=== PATIENT | male | born 1955 | race Caucasian/White ===

== ENCOUNTER 2020-04-10 08:58 | Outpatient (REF) | payer BC, SELFPAY ==
--- NOTE | 2020-04-10 09:07 | XR_ITS ---
EXAMINATION: XR SHOULDER, LEFT CLINICAL INFORMATION: Left shoulder pain. COMPARISON: Contralateral right shoulder radiographs 04/10/2020, chest radiograph 10/08/2007. TECHNIQUE: Left shoulder is imaged in 3 views. FINDINGS: There is no fracture or dislocation or destructive process. The acromioclavicular alignment is normal. There is small spur from the inferior medial humeral head. Subtle fine mineralization is seen adjacent to the superior humeral head on the external rotation view which may represent fine calcific tendinosis. There may be calcification near the distal infraspinatus as well. XR/XR shoulder LT min 2V IMPRESSION: Probable fine calcific tendinosis rotator cuff.
--- NOTE | 2020-04-10 09:07 | XR_ITS ---
EXAMINATION: XR SHOULDER, RIGHT CLINICAL INFORMATION: M25.511 - Pain in right shoulder COMPARISON: None TECHNIQUE: The right shoulder is imaged in 3 views. FINDINGS: There is no fracture or dislocation or destructive process. Mild degenerative changes are present at the glenohumeral joint with mild joint narrowing and spurring inferior medial humeral head. The acromioclavicular alignment is normal. There is focal calcification adjacent to the greater tuberosity in region of distal superior rotator cuff consistent with calcific tendinosis. XR/XR shoulder RT min 2V IMPRESSION: 1. Calcific tendinosis distal superior rotator cuff. 2. Mild degenerative changes glenohumeral joint.
== END 2020-04-10 08:59 | disposition home or self-care (01) ==
LOC: HO.HOSX 08:58
PROVIDERS: PCP Internal Medicine; Referring Provider Internal Medicine; Visit Provider Orthopaedic Surgery
DX: M19.011 Primary osteoarthritis, right shoulder (principal); M19.012 Primary osteoarthritis, left shoulder; M75.41 Impingement syndrome of right shoulder; M75.42 Impingement syndrome of left shoulder; Z79.899 Other long term (current) drug therapy
CPT/HCPCS: 20610; 73030; J1040

== ENCOUNTER 2021-10-22 06:49 | Outpatient (REF) | payer BC, SELFPAY ==
[2021-10-22 11:43] LABS: MANUAL DIFF FLAG NO
[2021-10-22 12:00] LABS: Basophils Percent Auto 0.5 % (0-2); Eosinophils Absolute Auto 0.2 X10*3/uL (0.0-0.4); Hematocrit 42.1 % (42.0-52.0); Hemoglobin 13.9 g/dl (14.0-18.0); Imm Gran Abs Auto 0.02 X10*3/uL (0.00-0.03); Imm Gran Pct Auto 0.3 % (0.0-0.4); Lymphocytes Absolute Auto 2.1 X10*3/uL (1.2-4.9); Lymphocytes Percent Auto 27.4 % (20-40); Mean Corpuscular Hemoglobin 31.7 pg (27.0-33.0); Mean Corpuscular Volume 96.1 fL (80.0-98.0); Mean Platelet Volume 9.9 fL (9.4-12.4); Monocytes Absolute Auto 0.6 X10*3/uL (0.1-1.2); Monocytes Percent Auto 7.7 % (2-11); Neutrophils Absolute Auto 4.7 x10*3/uL (2.0-8.3); Neutrophils Percent Auto 62.1 % (45-73); Platelet Count 311 X10*3/uL (160-400); Red Blood Count 4.38 X10*6/uL (4.60-5.80); Red Cell Distribution Width 13.2 % (11.0-16.0); White Blood Count 7.5 X10*3/uL (4.8-10.8)
[2021-10-22 12:14] LABS: Alanine Aminotransferase 24 U/L (0-40); Albumin Level 4.2 g/dL (3.5-5.0); Alkaline Phosphatase 79 U/L (39-117); Anion Gap 15 (12-20); Aspartate Amino Transferase 20 U/L (5-37); Blood Urea Nitrogen 14 mg/dL (9-16); Calcium 9.2 mg/dL (8.4-10.2); Carbon Dioxide 25 mmol/L (22-29); Chloride 107 mmol/L (96-108); Cholesterol 217 mg/dL; Estimated Glomerular Filt Rate > 60; Glucose Fasting 91 mg/dL (60-99); HDL Cholesterol 47 mg/dL; LDL Cholesterol Calculated 122 mg/dl; Potassium 4.5 mmol/L (3.3-5.1); Sodium 142 mmol/L (135-145); Triglycerides 241 mg/dL
[2021-10-22 12:37] LABS: Prostate Specific Antigen 0.45 ng/mL (<0.05-4.0)
== END 2021-10-22 06:50 | disposition home or self-care (01) ==
LOC: HO.HMGCLDS 06:49
PROVIDERS: Visit Provider Internal Medicine
DX: Z00.00 Encounter for general adult medical examination without abnormal findings (principal); Z12.5 Encounter for screening for malignant neoplasm of prostate
CPT/HCPCS: 36415; 80053; 80061; 84153; 85025

== ENCOUNTER 2021-11-29 08:54 | Day surgery (SDC) | payer BC, SELFPAY ==
[2021-11-25 13:56] VITALS: BMI 25.2
--- NOTE | 2021-11-28 13:38 | HO.ANESPROP2 ---
Documented by User: Loraine Goncalves NP 11/28/21 13:39 HPI - Anesthesia Eval Consult details Narrative: 66yo M for Upper Endoscopy and Colonoscopy PMF Active Problems Active Problems: All Active Problems (Updated 04/10/20 @ 14:17 by Johann Villavicencio MD) Bilateral acromioclavicular joint arthritis (Acute) Rotator cuff impingement syndrome of right shoulder (Acute) Rotator cuff impingement syndrome of left shoulder (Acute) Past Medical History Medical History (Updated 04/10/20 @ 14:17 by Johann Villavicencio MD) Barretts esophagus GERD (gastroesophageal reflux disease) Hypertension Surgical History Surgical History (Updated 11/25/21 @ 13:55 by Molly Corral RN) H/O colonoscopy H/O Spinal surgery History of esophagogastroduodenoscopy (EGD) History of tonsillectomy Social History Social History (Updated 04/10/20 @ 09:26 by Anna Recinos CMA) Patient Tobacco Use Status: Never used Tobacco Are you DNR?: No Advance Directives: No Advance Directives Information Provided: Yes Current occupational status: employed Current occupation: [employer] work - Right Handed Meds Allergies Allergy/AdvReac Type Severity Reaction Status Date / Time No Known Allergies Allergy Verified 11/29/21 08:37 Home Medications Medication Instructions Recorded Confirmed Last Taken Type allopurinol 300 mg tablet 150 mg PO DAILY 04/09/20 11/25/21 Unknown History lisinopril 10 mg tablet 10 mg PO DAILY 04/09/20 11/25/21 Unknown History omeprazole 20 mg capsule,delayed 20 mg PO DAILY 04/09/20 11/25/21 Unknown History release Exam Exam Date and Time: November 28, 2021 1338 Height,Weight and Vital Signs: Height 6 ft 1 in Weight 86.636 kg Pertinent Lab Results Pertinent Lab Results: Laboratory Tests 10/22/21 10/22/21 07:06 07:06 WBC 7.5 Hgb 13.9 L Hct 42.1 Plt Count 311 Sodium 142 Potassium 4.5 Chloride 107 Carbon Dioxide 25 BUN 14 Creatinine 0.80 Assessment and Plan Assessment Anesthesia Assessment: Chart Reviewed Documented by User: Carlos Hummel MD 11/29/21 12:03 [facility] Past Medical History Medical History (Updated 04/10/20 @ 14:17 by Johann Villavicencio MD) Barretts esophagus GERD (gastroesophageal reflux disease) Hypertension Family History Family history of problems with anesthesia: No Surgical History Surgical History (Updated 11/25/21 @ 13:55 by Molly Corral RN) H/O colonoscopy H/O Spinal surgery History of esophagogastroduodenoscopy (EGD) History of tonsillectomy History of Problems with Anesthesia: No Social History Social History (Updated 04/10/20 @ 09:26 by Anna Recinos CMA) Patient Tobacco Use Status: Never used Tobacco Are you DNR?: No Advance Directives: No Advance Directives Information Provided: Yes Current occupational status: employed Current occupation: [employer] work - Right Handed Meds Allergies Allergy/AdvReac Type Severity Reaction Status Date / Time No Known Allergies Allergy Verified 11/29/21 08:37 Home Medications Medication Instructions Recorded Confirmed Last Taken Type allopurinol 300 mg tablet 150 mg PO DAILY 04/09/20 11/25/21 Unknown History lisinopril 10 mg tablet 10 mg PO DAILY 04/09/20 11/25/21 Unknown History omeprazole 20 mg capsule,delayed 20 mg PO DAILY 04/09/20 11/25/21 Unknown History release Exam Airway Mallampati Class: III TM Dist: >3cm Neck ROM: Full Partial: Upper Loose/Missing/Broken Teeth: Yes (Poor dentition globally) Heart: S1,S2 Lungs: b/l breath sounds Assessment and Plan Assessment Anesthesia Assessment: Anesthesia Plan Discussed Final Anesthetic Review Family History of Problems with Anesthesia: No History of Problems with Anesthesia: No NPO: Yes ASA Class: II Final Preanesthetic Review: Meds/Allgs Chart Reviewed, Consent Obtained/Reviewed and Anes Risks/Benef Reviewed Patient Risk: Intermediate Procedure Risk: Intermediate Anesthetic Plan Anesthetic Plan: MAC: Disposition: Standard PACU
[2021-11-29 08:58] VITALS: BP 175/103; PULSE 66; RESP 17; TEMP 36.3; O2SAT 98
[2021-11-29] MEDS: Lactated Ringers 1,000 ML 100 ML IVCONT (09:18)
[2021-11-29 09:48] VITALS: BP 148/93
[2021-11-29 11:15] VITALS: BP 113/62; PULSE 67; RESP 16; TEMP 36.4; O2SAT 99
--- NOTE | 2021-11-29 11:17 | P.BOP_ITS ---
Brief Operative Note Date of Service: 11/29/21 Pre-op diagnosis: Loera's, Screening Post-op diagnosis: other (Loera's, Hiatal hernia, Gastric polyps, Diverticulosis) Procedure: EGD with biopsies, Colonoscopy to the cecum and TI Surgeon: Pawel Kowalski Anesthesia: MAC Was an Lending Activities Supervisor used for this Procedure?: No Estimated blood loss (mL): 2.0 Pathology: other (A. Esophagus 35-36cm B. Gastric polyps) Condition: stable Disposition: PACU
[2021-11-29 11:35] VITALS: BP 144/95; PULSE 59; RESP 16; TEMP 36.4; O2SAT 99
--- NOTE | 2021-11-29 22:47 | OP_ITS ---
SURGEON: Pawel Kowalski MD INDICATIONS: The patient presents for evaluation of gastroesophageal reflux and Loera's esophagus, family history of colon cancer and colorectal cancer screening. Full consent has been obtained from him for both procedures, including risks of bleeding and perforation. PREOPERATIVE DIAGNOSIS: POSTOPERATIVE DIAGNOSIS: PROCEDURE PERFORMED: Esophagogastroduodenoscopy with biopsies and colonoscopy to cecum and terminal ileum. ESTIMATED BLOOD LOSS: COMPLICATIONS: ANESTHESIA: Preop medication used, monitored anesthesia care. ASSISTANTS: SPECIMENS: PREOPERATIVE DIAGNOSES: Gastroesophageal reflux, Loera's esophagus, family history of colon cancer, colorectal cancer screening. POSTOPERATIVE DIAGNOSES: Gastroesophageal reflux, Loera's esophagus, family history of colon cancer, colorectal cancer screening, hiatal hernia, gastric polyps, diverticulosis and internal hemorrhoids. DESCRIPTION OF PROCEDURE: The patient was placed in the left lateral decubitus position. The Olympus video gastroscope was passed in the posterior oropharynx and upper esophagus under direct vision. The scope was passed slowly to the distal esophagus. The gastroesophageal junction appeared at 36 cm. Extending from this to 35 cm were segments of probable Loera's mucosa. There was no evidence of any lesions, inflammation, nor mass. The scope entered the stomach. There was a small to moderate-sized hiatal hernia. The scope was advanced to the pylorus and the duodenum was cannulated to the descending portion. The duodenum including the bulb appeared normal without mass or ulceration. The scope was withdrawn back into the stomach. The gastric antrum and body appeared normal with good peristalsis. The scope was retroflexed visualizing the proximal stomach carefully which appeared normal, without any sign of mass or ulceration, other than multiple hyperplastic appearing gastric polyps. The scope was straightened. Biopsies were obtained from some of the polyps. The scope was withdrawn back to the esophagus. Multiple biopsies were obtained between 35 and 36 cm. Proximal to this, the esophageal mucosa appeared normal. The scope was withdrawn from the patient. He was turned around for the colonoscopy. The digital rectal exam revealed no abnormalities. The Olympus video pediatric colonoscope was entered into the rectum and advanced easily to the cecum. Once in the cecum, I did identify normal-appearing cecal pouch with appendiceal orifice and a normal-appearing ileocecal valve. The terminal ileum was cannulated and appeared normal. The scope was withdrawn back in the colon. The entire cecum and ileocecal valve appeared normal. The scope was then slowly withdrawn assessing all mucosal surfaces carefully. Preparation was excellent. I did not visualize any sign of polyps, colitis, or angiodysplasia. There was a moderate amount of sigmoid diverticulosis. In the rectum, scope was retroflexed visualizing small internal hemorrhoids, but no other pathology. The rectal mucosa appeared normal. The scope was straightened and withdrawn from the patient. He tolerated both procedures well and was returned to recovery area in stable condition. IMPRESSION: 1. Hiatal hernia. 2. Loera's esophagus. 3. Gastric polyps. 4. Diverticulosis. 5. Internal hemorrhoids. PLAN: The results of biopsies will be checked. Assuming there is no dysplasia within the Loera's esophagus, I would then recommend both upper endoscopy and colonoscopy again in 5 years for further screening. I do not think the upper endoscopy would need to be done sooner than 5 years due to the small area of Loera's esophagus at this time. He was advised to continue omeprazole at least once a day. He would otherwise see me in the interim on a p.r.n. basis. This has been discussed with his . MD KELVIN Rodriguez/SHEYLA / [id number] MTDD
== END 2021-11-29 12:08 | disposition home or self-care (01) ==
PROVIDERS: PCP Internal Medicine; Visit Provider Internal Medicine
PROC: (CPT 45378; principal; 2021-11-29 10:10)
DX: Z12.11 Encounter for screening for malignant neoplasm of colon (principal); Z80.0 Family history of malignant neoplasm of digestive organs; K57.30 Diverticulosis of large intestine without perforation or abscess without bleeding; K64.8 Other hemorrhoids; K22.70 Barrett's esophagus without dysplasia; K21.9 Gastro-esophageal reflux disease without esophagitis; K31.7 Polyp of stomach and duodenum; K44.9 Diaphragmatic hernia without obstruction or gangrene; I10 Essential (primary) hypertension; M10.9 Gout, unspecified; Z79.899 Other long term (current) drug therapy
CPT/HCPCS: 45378; 43239; 88305; 88342; J3010

== ENCOUNTER 2023-11-02 08:10 | Outpatient (REF) | payer BC, SELFPAY ==
--- NOTE | ~2023-11-02 | XR_ITS ---
EXAMINATION: XR HAND, RIGHT CLINICAL INFORMATION: Right thumb pain COMPARISON: None TECHNIQUE: 3 views of the hand FINDINGS: No fracture or dislocation. 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 There is volar subluxation of the second and third MCP joints. No cortical erosion. Soft tissues are unremarkable. 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 There is volar subluxation of the second and third MCP joints.
== END 2023-11-02 08:11 | disposition home or self-care (01) ==
LOC: HO.HMGCX 08:10
PROVIDERS: PCP Internal Medicine; Visit Provider Internal Medicine
DX: M19.041 Primary osteoarthritis, right hand (principal)
CPT/HCPCS: 73130

== ENCOUNTER 2023-11-10 14:01 | Outpatient (AMB) | payer BC, SELFPAY ==
--- NOTE | 2023-11-10 14:04 | A.OFFVIS_ITS ---
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 Patient reports that he sprained his thumb around May 11, or . He was seen by his PCP who ordered xrays and referred to orthopedics. Currently his pain has increased and has no strength. He has clicking at his IP and a lump located at the base of his thumb. States a tingling sensation at the tip of his thumb. Finds some relief with Advil and icing. 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 He also reports that, at around this time, he began to notice locking and catching in his R thumb, and also noticed a palpable bump in the same area as his pain. He reports today that his symptoms are largely unchanged. He reports that he has tried to do some research on his condition, that he believes he has a trigger thumb, and inquires about treatment options. [facility] Medical History (Updated 11/10/23 @ 19:29 by BENJAMIN Chowdhury) Hypertension GERD (gastroesophageal reflux disease) Barretts esophagus Surgical History H/O colonoscopy History of esophagogastroduodenoscopy (EGD) H/O Spinal surgery History of tonsillectomy Social History (Updated 04/10/20 @ 09:26 by Anna Recinos CMA) Patient Tobacco Use Status: Never used Tobacco Current occupational status: employed Current occupation: [employer] work - Right Handed Review of Systems Const All systems reviewed & are unremarkable except as noted in HPI and below Physical Exam Vital Signs: BMI result Body Mass Index 25.8 Const Other: Patient is alert, oriented, cooperative, and in no acute distress HEENT Head: Yes normocephalic and Yes atraumatic Resp Effort & Inspection: normal respiratory effort and able to speak in complete sentences Cardio Jugular venous distension: no JVD Neuro General: gait normal Cognition (Neuro): normal cognition Extrem Other: Patient is alert, oriented, and in no acute distress. Neuro: Median, ulnar, radial nerves motor and sensory intact and sensation is normal to the tips of all digits. Vascular: Cap refill brisk Pain: Patient reports pain with flexion of the right thumb, as well as tenderness to palpation over the A1 kurtis of the R thumb ROM: Visible and palpable catching of the thumb with flexion and extension at the A1 kurtis Patient is able to make a fist, and good finger cross Skin: No lacerations or abrasions. General: No ecchymosis, erythema, or evidence of infection. Psych: Appears grossly normal Affect normal Attitude cooperative Psych Appearance: grossly normal Mental Status: mental status grossly normal Office Procedures Injection-Therapetic Trigger Single Point: 44912-Rfobnfw point injection, 1 or 2 R trigger thumb injection Results Reviewed Results Reviewed: X-rays obtained in the office today and independently reviewed by me, Rik Beckman PA-C, demonstrate no acute fracture or bony abnormality Assessment & Plan Assessment & Plan (1) Trigger thumb of right hand: Code(s): M65.311 - Trigger thumb, right thumb Category: Medical Plan 1. Right trigger thumb Visible and palpable locking and catching, tenderness over A1 kurtis At this time, it is appropriate to proceed with injection for treatment of this patient's trigger thumb. The risks and benefits of a steroid injection including but not limited to risk of damage to blood vessels, nerves, tendons, infection, skin bleaching, failure to improve symptoms, increased pain, and possible need for further injections or other intervention were discussed with the patient and the patient wishes to proceed with the steroid injection. Once consent was obtained, I sterilely prepped the area over the A1 kurtis of the flexor tendon sheath of the right thumb. I then injected the flexor tendon sheath with a combination of 1 mL of dexamethasone (4mg/ml), and 1% lidocaine. The patient tolerated the procedure well with no complications. If the patient continues to have locking and catching 4-6 weeks following this injection, they may call to schedule appointment to discuss alternative treatment options Follow-up prn Coding Level of Care Code New Pt Level 3 (25686) Diagnoses Trigger thumb of right hand M65.311 CPT Codes Details - Trigger Single Point: [id number] point injection, 1 or 2 ([id number])
[2023-11-10 14:10] VITALS: BMI 25.8
== END 2023-11-10 15:00 | disposition home or self-care (01) ==
PROVIDERS: PCP Internal Medicine
DX: M65.311 Trigger thumb, right thumb (principal)
CPT/HCPCS: 20550; 99203

== ENCOUNTER → 2023-11-10 14:01 | Outpatient (BNVA) | payer BC, SELFPAY | PROVIDERS: PCP Internal Medicine | DX: M65.311 Trigger thumb, right thumb (principal) | CPT/HCPCS: 20550; J1100 ==

== ENCOUNTER 2024-05-02 14:49 | Outpatient (AMB) | payer BC, SELFPAY ==
--- NOTE | 2024-05-02 14:56 | A.OFFVIS_ITS ---
Vital Signs 05/02/24 14:57 Height 6 ft Weight 190 lb BMI 25.8 Handedness Right Intake Visit Reasons: OV-RT hand pain/bump at base of thumb-follow up Intake Note: Amos is a 69 year old right hand dominant male who presents today for a follow up visit of his right trigger thumb. Patient received a right thumb injection on 11/10/23. Patient reports his last injection offered no relief at all to his right thumb. He states his pain has not improved and is progressively getting worse. He would like to discuss surgery. Allergies No Known Allergies Allergy (Verified 05/02/24 14:57) HPI HPI OV-RT hand pain/bump at base of thumb-follow up: Details: Amos is a 69 year old right hand dominant male who presents today for a follow up visit of his right trigger thumb. Patient received a right thumb injection on 11/10/23. Patient reports his last injection offered no relief at all to his right thumb. He states his pain has not improved and is progressively getting worse. He would like to discuss surgery. [facility] Medical History (Updated 11/10/23 @ 19:29 by BENJAMIN Chowdhury) Hypertension GERD (gastroesophageal reflux disease) Barretts esophagus Surgical History H/O colonoscopy History of esophagogastroduodenoscopy (EGD) H/O Spinal surgery History of tonsillectomy Social History Patient Tobacco Use Status: Never used Tobacco Current occupational status: employed Current occupation: [employer] work - Right Handed Review of Systems Const All systems reviewed & are unremarkable except as noted in HPI and below Physical Exam Vital Signs: BMI result Body Mass Index 25.8 Const Other: Patient is alert, oriented, cooperative, and in no acute distress HEENT Head: Yes normocephalic and Yes atraumatic Resp Effort & Inspection: normal respiratory effort and able to speak in complete sentences Cardio Jugular venous distension: no JVD Neuro General: gait normal Cognition (Neuro): normal cognition Extrem Other: Patient is alert, oriented, and in no acute distress. Neuro: Median, ulnar, radial nerves motor and sensory intact and sensation is normal to the tips of all digits. Vascular: Cap refill brisk Pain: Patient reports pain with flexion of the right thumb, as well as tenderness to palpation over the A1 kurtis of the R thumb ROM: Visible and palpable catching of the thumb with flexion and extension at the A1 kurtis Patient is able to make a fist, and good finger cross Skin: No lacerations or abrasions. General: No ecchymosis, erythema, or evidence of infection. Psych: Appears grossly normal Affect normal Attitude cooperative Psych Appearance: grossly normal Mental Status: mental status grossly normal Assessment & Plan Assessment & Plan (1) Trigger thumb of right hand: Code(s): M65.311 - Trigger thumb, right thumb Category: Medical Plan 1. Trigger thumb, right I educated the patient about the condition. I discussed both operative and nonoperative treatment options. The patient would like to proceed with surgery. The risks and benefits of operative treatment were discussed with the patient and the patient wishes to proceed with surgery. These risks include, but are not limited to, risk of damage to blood vessels, nerves, tendons, infection, recurrence, incomplete relief of preoperative symptoms, persistent pain, possible need for further surgery, and the risks associated with regional blocks and/or anesthesia. Plan is to take the patient to the operating room at some point in the next few weeks for the following procedures: 1. Right trigger thumb release under local All of the preoperative paperwork including the consent was discussed today. All of the patient's questions were answered in the clinic today. The patient understands that they will be in contact with our operating room surgical technician to discuss scheduling their procedure. Patient denies diabetes, blood thinners, asthma, heart issues, lung issues, kidney issues, or current smoking. Coding Level of Care Code Est Pt Level 4 (02783) Diagnoses Trigger thumb of right hand M65.311
[2024-05-02 14:57] VITALS: BMI 25.8
== END 2024-05-02 15:29 | disposition home or self-care (01) ==
PROVIDERS: PCP Internal Medicine
DX: M65.311 Trigger thumb, right thumb (principal)
CPT/HCPCS: 99214

== ENCOUNTER 2024-06-29 10:09 | Day surgery (SDC) | payer BC, SELFPAY ==
[2024-06-29 10:24] VITALS: BP 160/86; PULSE 73; RESP 18; TEMP 36.1; O2SAT 97; BMI 26.4
--- NOTE | 2024-06-29 10:37 | MHC.SHP ---
Pre-Procedural Eval Section A - 24 Hr Update-Section A only Date of Service: 06/29/24 The patient is an INPATIENT: No Changes since office visit: No Cold of Flu in the past 2 weeks, No New Medical Problems, No Changes in Medication and No Patient answered all questions The patient has been examined within 24 hours of the surgical procedure. The History & Physical has been completed within 30 days and I have reviewed it.: Yes Section B - Complete if H&P > 30 days Chief Complaint: Trigger thumb, right thumb Allergies: Allergies Allergy/AdvReac Type Severity Reaction Status Date / Time No Known Allergies Allergy Verified 05/02/24 14:57 Plan Diagnosis/Plan: Unchanged I have reviewed the history and physical and performed a pertinent physical examination on my patient. No changes have occurred unless specified. Time Spent With Patient Time: Total time managing care of this patient today ____ minutes.
--- NOTE | 2024-06-29 10:38 | P.OP_ITS ---
Operative Note Operative Note Date of Service: 06/29/24 Narrative: Operative Note Preop diagnosis: 1. Right thumb Trigger finger Postop diagnosis: Same Procedure: 1. Right thumb A1 kurtis release Surgeon: Yolanda Grossman MD Global Upstream Marketing Manager: Rik ALEXANDER Anesthesia: local block using 1% lidocaine with epinephrine Findings: No locking or catching after A1 kurtis release EBL: Less than 5 mL Tourniquet time: None Specimens: None Complications: None Disposition: Brought to recovery room in stable condition Plan: Follow-up for 10-14 days for wound check and suture removal Indications: The patient is 69 years old, with a right thumb trigger finger that has been unresponsive to nonoperative management. The risks and benefits of operative treatment including but not limited to risk of damage to blood vessels, nerves, tendons, infection, persistent pain, persistent symptoms, recurrence or possible need for additional surgery were discussed with the patient and the patient wishes to proceed with surgery. Procedure: Once consent was obtained a local block was performed in the preop area using a combination of 1% lidocaine with epinephrine. The patient was then brought back to the operating suite and placed on the operative table in supine position. The right upper extremity was prepped and draped in a standard surgical fashion. Once assured that we had a good block, a 1.5 cm oblique incision was made centered over the A1 ukrtis of the right thumb . The incision was made through the skin to the subcutaneous tissues using a #15 blade. Careful dissection was made down to the level of the A1 kurtis using tenotomy scissors, with care being taken to protect the nearby neurovascular structures. A longitudinal incision was made in the A1 kurtis 1st using a #15 blade, then using tenotomy scissors under direct visualization. The A1 kurtis was noted to be thickened. Following our A1 kurtis release, we no longer saw any locking or catching of the digit with flexion and extension. Once satisfied with our A1 kurtis release the wound was copiously irrigated with normal saline and hemostasis was obtained with a brief period of local pressure. The skin edges were reapproximated with some 5.0 nylon suture material and a sterile dressing was applied. The patient appears to have tolerated the procedure well and with no complications. All digits were well vascularized at the conclusion of the case.
[2024-06-29 11:18] VITALS: BP 160/95; PULSE 72; RESP 18; O2SAT 98
== END 2024-06-29 11:27 | disposition home or self-care (01) ==
PROVIDERS: PCP Internal Medicine; Visit Provider Orthopaedic Surgery
PROC: (CPT 26055; principal; 2024-06-29 16:10)
DX: M65.311 Trigger thumb, right thumb (principal); I10 Essential (primary) hypertension; K21.9 Gastro-esophageal reflux disease without esophagitis; K22.70 Barrett's esophagus without dysplasia; Z98.890 Other specified postprocedural states; Z79.899 Other long term (current) drug therapy
CPT/HCPCS: 26055; J0171; J2003

== ENCOUNTER → 2024-06-29 10:09 | Outpatient (BNV) | payer BC, SELFPAY | PROVIDERS: PCP Internal Medicine; Visit Provider Orthopaedic Surgery | DX: M65.311 Trigger thumb, right thumb (principal) | CPT/HCPCS: 26055 ==

== ENCOUNTER 2024-07-12 10:32 | Outpatient (AMB) | payer BC, SELFPAY ==
--- NOTE | 2024-07-12 10:33 | A.OFFVIS_ITS ---
Vital Signs 07/12/24 10:34 Height 6 ft Weight 194 lb BMI 26.3 Intake Visit Reasons: PO RT Thumb Trigger Release 06/29/24 Intake Note: Amos is a 69 year old right hand dominant male who presents today for a post operative visit s/p right thumb A1 kurtis release, DOS: 06/29/2024 w/ Dr Grossman. Sutures removed and steris applied. Patient is doing well, reports that he is very pleased with his surgical outcome as his ROM has increased Allergies No Known Allergies Allergy (Verified 07/12/24 10:40) HPI HPI PO RT Thumb Trigger Release 06/29/24: Details: Amos is a 69 year old right hand dominant male who presents today for a post operative visit s/p right thumb A1 kurtis release, DOS: 06/29/2024 w/ Dr Grossman. Sutures removed and steris applied. Patient is doing well, reports that he is very pleased with his surgical outcome as his ROM has increased PFSH Medical History Hypertension GERD (gastroesophageal reflux disease) Barretts esophagus Surgical History H/O colonoscopy History of esophagogastroduodenoscopy (EGD) H/O Spinal surgery History of tonsillectomy Social History Patient Tobacco Use Status: Never used Tobacco Current occupational status: employed Current occupation: [employer] work - Right Handed Review of Systems Const All systems reviewed & are unremarkable except as noted in HPI and below Physical Exam Vital Signs: BMI result Body Mass Index 26.3 Const Other: Patient is alert, oriented, cooperative, and in no acute distress HEENT Head: Yes normocephalic and Yes atraumatic Resp Effort & Inspection: normal respiratory effort and able to speak in complete sentences Cardio Jugular venous distension: no JVD Neuro General: gait normal Cognition (Neuro): normal cognition Extrem Other: Patient is alert, oriented, and in no acute distress. Neuro: Median, ulnar, radial nerves motor and sensory intact and sensation is normal to the tips of all digits. Vascular: Cap refill brisk Pain: Patient reports pain with flexion of the right thumb, as well as tenderness to palpation over the A1 kurtis of the R thumb ROM: Visible and palpable catching of the thumb with flexion and extension at the A1 kurtis Patient is able to make a fist, and good finger cross Skin: No lacerations or abrasions. General: No ecchymosis, erythema, or evidence of infection. Psych: Appears grossly normal Affect normal Attitude cooperative Psych Appearance: grossly normal Mental Status: mental status grossly normal Assessment & Plan Assessment & Plan (1) Trigger thumb of right hand: Code(s): M65.311 - Trigger thumb, right thumb Category: Medical (2) Numbness and tingling in both hands: Code(s): R20.0 - Anesthesia of skin; R20.2 - Paresthesia of skin Category: Medical Plan 1. Trigger thumb, right Status post trigger release, DOS 06/1924 Patient appears to be recovering well postoperatively Patient is educated about the typical recovery course At this time, patient was in more require no further acute follow-up with us, as he is recovering very well Patient was amenable to this plan Patient will follow-up as needed with any acute concerns 2. Numbness and tingling in both hands Symptoms intermittent, daily, worse at night EMG and nerve conduction ordered at visit today patient will follow-up after EMG and nerve conduction study for results review and discussion of further treatment options if indicated, sooner with any acute concerns Orders: Orders NE electromyogram (EMG) Today R20.0 - Anesthesia of skin, R20.2 - Paresthesia of skin NE nerve conduction velocity Today R20.0 - Anesthesia of skin, R20.2 - Paresthesia of skin Coding Level of Care Code Est Pt Level 3 (53126) Diagnoses Trigger thumb of right hand M65.311 Numbness and tingling in both hands R20.0; R20.2
[2024-07-12 10:34] VITALS: BMI 26.3
--- OUTSIDE RECORDS SUMMARY | 2024-07-12 12:49 | XMS_ITS | Patient Health Record ---
Author Organization [facility] Address [address] [place] [address] Care Team Providers Care Business Intelligence Manager Name Role Phone Norris Wadsworth MD Primary Care Provider Pawel Damon Unavailable [phone] ALLERGIES No Known Allergies REASON FOR REFERRAL No Information MEDICATIONS Medication SIG (Take, Route, Fr equency, Duration) Notes Start Date End Date Status Lisinopril 10 MG TAKE 1 TABLET BY PIA EVERY DAY Oral for 90 Active Allopurinol 300 MG Oral for 90 Active Omeprazole 20 MG Oral for 90 A ctive IMMUNIZATIONS Vaccine Route Administration Date Status Comme nts Influenza Unknown 10/22/2021 Refused SOCIAL HISTORY Tobacco Use: Social History Observation Description Date Details (start date - stop date) Never Smoker NA - NA Sex Assigned At : Social History Observation Description Sex Assigned At Unknown Tobacco Use/Smoking Question Answer Notes Patient is a nonsmoker Alcohol Screen Question Answer Notes Did you have a drink contain ing alcohol in the past year? Yes How often did you have a dri nk containing alcohol in the past year? 2 to 3 times a week (3 points) How many drinks did you have on a typical day when you were drinking in the past year? 1 or 2 drinks (0 point) Points 3 Interpretation Negative PROBLEMS Problem Type ICD Code Onset Dates Problem Status W/U Status Risk SNOMED Code Notes Problem Gastro-esophageal reflux disease without esophagitis (K21.9) Active confirmed Gastro-esophage al reflux disease without esophagitis (304720182) Problem Encounter for screening for malignant neoplasm of colon (Z12.11) Active confirmed Screening for malignant neoplasm of colon (394375660) Problem Family history of colon cancer (Z80.0) Active confirmed Family History of Cancer of Colon (Situation) (128365915) Problem Gastric polyps (K31.7) Active confirmed Benign neoplasm of stomach (86219815) Problem GERD (gastroesophageal reflux disease) (K21.9) Active confirmed Gastroesophagea l reflux disease (275915496) Problem 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) Active confirmed Loera esophag us (998072164) Problem Diverticulosis of colon (K57.30) Active confirmed Diverticulosi s of colon (664330391) Problem 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) Active confirmed Loera's esophagus (069650115) PLAN OF TREATMENT Future Test Test Name Order Date UPPER GI ENDOSCOPY 10/22/2021 COLONOSCOPY 10/22/2021 Insurance Providers Payer Name Payer Address Payer Phone Subscriber Number Group Number Insured Name Patient Relationship to Insured Coverage Start Date Coverage End Date [facility] [address] [place] [address] [id number] CARA DIEGO Self - patient is the insured [facility] [address] [place] [address] [phone] [id number] CARA DIEGO Self - patient is the insured MEDICAL (GENERAL) HISTORY Medical History History ICD Code Hypertension Gout GERD/Esophagitis/Loera's/s mall hiatal hernia-last EGD in 08/[address] Estrada--he has been using omeprazole to many years with fairly good relief of reflux symptoms although he does have occasional nocturnal symptoms Negative screening colonoscopies in 2008 and in 08/2016 Denies [place],DM,CVA,Lung disease,renal dise ase Surgical History Surgery Date(Month/Year) Back surgeries 1989,1997
== END 2024-07-12 10:45 | disposition home or self-care (01) ==
PROVIDERS: PCP Internal Medicine
DX: M65.311 Trigger thumb, right thumb (principal); R20.0 Anesthesia of skin; R20.2 Paresthesia of skin
CPT/HCPCS: 99024

== ENCOUNTER 2024-08-09 09:16 | Outpatient (REF) | payer BC, SELFPAY ==
--- NOTE | ~2024-08-09 | XR_ITS ---
EXAMINATION: XR SHOULDER 2 OR MORE VIEWS RIGHT HISTORY: M25.511 - Pain in right shoulder COMPARISON: Comparison is made with the prior examination dated 04/10/2020. FINDINGS: Three views of the right shoulder are submitted. Osseous mineralization is normal. There is no acute fracture or dislocation. There is mild degenerative change of the glenohumeral joint with osteophyte formation. There is mild to moderate osteoarthritis of the AC joint. A well-corticated osseous density adjacent to the inferior glenoid may be the result of old trauma. The soft tissues are unremarkable. XR/XR shoulder RT min 2V IMPRESSION: Degenerative changes of the right shoulder as described. Electronically signed by: Pawel Kendrick MD 08/10/2024 07:01 AM EDT
--- OUTSIDE RECORDS SUMMARY | 2024-08-09 10:18 | XMS_ITS | Patient Health Record ---
Author Organization [facility] Address [address] [place] [address] Care Team Providers Care Ceramic Engineering Professor Name Role Phone Norris Wadsworth MD Primary Care Provider Pawel Damon Unavailable [phone] Allergies No Known Allergies Reason For Referral No Information Medications Medication SIG (Take, Route, Fr equency, Duration) Notes Start Date End Date Status Lisinopril 10 MG TAKE 1 TABLET BY PIA EVERY DAY Oral for 90 Active Allopurinol 300 MG Oral for 90 Active Omeprazole 20 MG Oral for 90 A ctive Immunizations Vaccine Route Administration Date Status Comme nts Influenza Unknown 10/22/2021 Refused Social History Tobacco Use: Social History Observation Description Date Details (start date - stop date) Never Smoker NA - NA Tobacco Use/Smoking Question Answer Notes Patient is [...] drinks (0 point) Points 3 Interpretation Negative Section Notes: Nonsmoker; occ. beer Problems Problem Type SNOMED Code ICD Code Onset Dates Problem Status W/U Status Risk Notes Problem Gastro-esophageal reflux disease without esophagitis (604631534) Gastro-esophageal reflux disease without esophagitis (K21.9) Active confirmed Problem Screening for malignant neoplasm of colon (190197594) Encounter for screening for malignant neoplasm of colon (Z12.11) Active confirmed Problem Family History of Cancer of Colon (Situation) (283240923) Family history of colon cancer (Z80.0) Active confirmed Problem Benign neoplasm of stomach (43725349) Gastric polyps (K31.7) Active confirmed Problem Gastroesophageal reflux disease (839816603) GERD (gastroesophageal reflux disease) (K21.9) Active confirmed Problem Loera esophagus (425243190) 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) Active confirmed Problem Diverticulosis of colon (402581302) Diverticulosis of colon (K57.30) Active confirmed Problem Loera's esophagus (834550347) 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) Active confirmed Plan Of Treatment Future Test Test Name Order Date UPPER GI ENDOSCOPY 10/22/2021 COLONOSCOPY 10/22/2021 Insurance Providers Payer Name Payer Address Payer Phone Subscriber Number Group Number Insured Name Patient Relationship to Insured Coverage Start Date Coverage End Date [facility] [address] [place] [address] [phone] [id number] CARA DIEGO Self - patient is the insured [facility] [address] [place] [address] [phone] [id number] CARA DIEGO Self - patient is the insured Medical (General) History Medical History History ICD Code Hypertension Gout GERD/Esophagitis/Loera's/s mall hiatal hernia-last EGD in 08/[address] Estrada--he has been using omeprazole to many years with fairly good relief of reflux symptoms although he does have occasional nocturnal symptoms Negative screening colonoscopies in 2008 and in 08/2016 Denies [place],DM,CVA,Lung disease,renal dise ase Surgical History Surgery Date(Month/Year) Back surgeries 1989,1997
== END 2024-08-09 09:17 | disposition home or self-care (01) ==
LOC: HO.HOSX 09:16
DX: M25.511 Pain in right shoulder (principal); M19.011 Primary osteoarthritis, right shoulder; M19.012 Primary osteoarthritis, left shoulder
CPT/HCPCS: 20610; 73030; J1010; J2003

== ENCOUNTER 2024-08-09 10:06 | Outpatient (AMB) | payer BC, SELFPAY ==
--- NOTE | 2024-08-09 10:13 | MHC.OFFVIS ---
Intake Visit Reasons: Newprob-RT shoulder-interested in cortisone inj. Intake Note: Amos is a 69 year old right hand dominant male who presents today for a new problem visit with complaints of right shoulder pain. Patient was seen in past on 03/30/[address] Johann Villavicencio for his bilateral shoulders and received an injection in the right shoulder. Patient reports stretching certain ways causes pain. He states he had decent amount of relief since this injection. 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 Allergies No Known Allergies Allergy (Verified 08/09/24 10:21) HPI HPI Newprob-RT shoulder-interested in cortisone inj.: Details: Amos is a 69 year old right hand dominant male who presents today for a new problem visit with complaints of left shoulder pain. Patient was seen in past on 03/30/[address] Johann Villavicencio for his bilateral shoulders and received an injection in the right shoulder. Patient reports stretching certain ways causes pain. He states he had decent amount of relief since this injection. 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 [facility] Medical History Hypertension GERD (gastroesophageal reflux disease) Barretts esophagus Surgical History H/O colonoscopy History of esophagogastroduodenoscopy (EGD) H/O Spinal surgery History of tonsillectomy Social History Patient Tobacco Use Status: Never used Tobacco Current occupational status: employed Current occupation: [employer] work - Right Handed Review of Systems Const All systems reviewed & are unremarkable except as noted in HPI and below Physical Exam Extrem Other: Patient's left shoulder normal to inspection No erythema, ecchymosis, edema noted No lacerations, abrasions, open areas No evidence of infection Patient reports no tenderness to palpation of the left shoulder Patient was able to forward flex to 90 degrees of reports some discomfort when doing so Able to externally rotate to 60 degrees bilaterally Distal sensation intact Capillary refill brisk Office Procedures Joint Inj/Aspir; Non-Pain Clin Joint Injection/Drain Prep: site was prepped using aseptic technique and injection warnings given Approach Used: posterolateral Procedure: The patient tolerated the procedure well and there was some relief with the local anesthesia Shoulders, Hips, Knees, Shoulder Injection Large joint 45929: Left Shoulder Coding Procedure code (CPT) selection complete Assessment & Plan Assessment & Plan (1) Bilateral acromioclavicular joint arthritis: Code(s): M19.011 - Primary osteoarthritis, right shoulder; M19.012 - Primary osteoarthritis, left shoulder Category: Medical (2) Rotator cuff impingement syndrome of left shoulder: Code(s): M75.42 - Impingement syndrome of left shoulder Category: Medical Plan 1. Osteoarthritis of the left shoulder 2. Impingement syndrome left shoulder The risks and benefits of a steroid injection including but not limited to risk of damage to blood vessels, nerves, tendons, infection, skin bleaching, failure to improve symptoms, increased pain, and possible need for further injections or other intervention were discussed with the patient and the patient wishes to proceed with the steroid injection. Once consent was obtained, I aseptically prepped the area over the anterolateral joint line of the left shoulder. I then injected the area over the lateral epicondyle with a combination of 80 mg of dexamethasone and 8 mL of 1% lidocaine. The patient tolerated the procedure well with no complications. If the patient continues to experience symptoms over the following few weeks or months, they can make an appointment to return and discuss alternative treatment measures, such as physical therapy. Follow-up prn Orders: Orders XR shoulder RT min 2V Today M25.511 - Pain in right shoulder Coding Level of Care Code Est Pt Level 3 (41629) Diagnoses Bilateral acromioclavicular joint arthritis M19.011; M19.012 Rotator cuff impingement syndrome of left shoulder M75.42 CPT Codes Shoulders, Hips, Knees, - Shoulder Injection Large joint 89060: Left Shoulder ([id number])
== END 2024-08-09 10:43 | disposition home or self-care (01) ==
LOC: HO.HOS 10:07
PROVIDERS: PCP Internal Medicine
DX: M19.011 Primary osteoarthritis, right shoulder (principal); M19.012 Primary osteoarthritis, left shoulder; M75.42 Impingement syndrome of left shoulder
CPT/HCPCS: 20610; 99213

== ENCOUNTER → 2024-08-09 10:10 | Outpatient (BNV) | payer BC, SELFPAY | PROVIDERS: Visit Provider Radiology Diagnostic Radiology | DX: M19.011 Primary osteoarthritis, right shoulder (principal) | CPT/HCPCS: 73030 ==

== ENCOUNTER 2024-08-10 08:07 | Outpatient (REF) | payer BC, SELFPAY ==
--- NOTE | 2024-08-10 08:15 | EMG_ITS ---
Chief complaint: Nighttime numbness on bilateral forearms and hands Reason for referral: Evaluate for Carpal Tunnel Syndrome Referred by: Rik ALEXANDER Procedure done: Bilateral upper extremities NCS/EMG Precautions and/or limitations: None The limb temperature was monitored continuously and remained between 32-36 degrees C during the performance of the NCS. Ulnar motor NCS was performed with moderate elbow flexion between 70-90 degrees, with across-elbow distance of 10 cm. Nerve Conduction Studies Anti Sensory Summary Table ?Stim Site NR Onset (ms) Norm Onset (ms) Peak (ms) Norm Peak (ms) O-P Amp (?V) Norm O-P Amp Site1 Site2 Delta-0 (ms) Dist (cm) Tito (m/s) Norm Tito (m/s) Left Median Anti Sensory (2nd Digit) Wrist NR <3.6 >10 Wrist 2nd Digit 14.0 Right Median Anti Sensory (2nd Digit) Wrist NR <3.6 >10 Wrist 2nd Digit 14.0 Left Radial Anti Sensory (Thumb) Forearm ? 1.6 2.4 <3.1 21.3 Forearm Thumb 1.6 0.0 Right Radial Anti Sensory (Thumb) Forearm ? 1.7 2.4 <3.1 13.1 Forearm Thumb 1.7 0.0 Left Ulnar Anti Sensory (5th Digit) Wrist ? 5.0 6.5 <3.7 14.8 >15.0 Wrist 5th Digit 5.0 14.0 28 Right Ulnar Anti Sensory (5th Digit) Wrist ? 3.0 4.0 <3.7 13.9 >15.0 Wrist 5th Digit 3.0 14.0 47 Motor Summary Table ?Stim Site NR Onset (ms) Norm Onset (ms) O-P Amp (mV) Norm O-P Amp iAmp (mV) Amp (1st) (%) Site1 Site2 Delta-0 (ms) Dist (cm) Tito (m/s) Norm Tito (m/s) Left Median Motor (Abd Poll Brev) Wrist NR <3.9 >4.5 Elbow Wrist 0.0 >45 Elbow NR Right Median Motor (Abd Poll Brev) Wrist ? 6.7 <3.9 5.2 >4.5 5.9 100.0 Elbow Wrist 5.0 21.0 42 >45 Elbow ? 11.7 4.5 5.2 86.5 Left Ulnar Motor (Abd Dig Minimi) Wrist ? 3.8 <3.0 6.0 >5 7.2 100.0 B Elbow Wrist 3.9 21.0 54 >45 B Elbow ? 7.7 5.8 7.0 96.7 A Elbow B Elbow 2.0 10.0 50 >45 A Elbow ? 9.7 5.8 7.0 96.7 Right Ulnar Motor (Abd Dig Minimi) Wrist ? 3.4 <3.0 5.7 >5 7.4 100.0 B Elbow Wrist 4.6 21.5 47 >45 B Elbow ? 8.0 5.6 7.2 98.2 A Elbow B Elbow 1.8 10.0 56 >45 A Elbow ? 9.8 5.3 7.0 93.0 EMG ?Side Muscle Nerve Root Ins Act Fibs Psw Amp Dur Poly Recrt Int Pat Comment Right 1stDorInt Ulnar C8-T1 Nml Nml Nml Nml Nml 0 Nml Complete Right Biceps Musculocut C5-6 Nml Nml Nml Nml Nml 0 Nml Complete Right Triceps Radial C6-7-8 Nml Nml Nml Nml Nml 0 Nml Complete Right Deltoid Axillary C5-6 Nml Nml Nml Nml Nml 0 Nml Complete Left 1stDorInt Ulnar C8-T1 Nml Nml Nml Nml Nml 0 Nml Complete Left Biceps Musculocut C5-6 Nml Nml Nml Nml Nml 0 Nml Complete Left Triceps Radial C6-7-8 Nml Nml Nml Nml Nml 0 Nml Complete Left Deltoid Axillary C5-6 Nml Nml Nml Nml Nml 0 Nml Complete Left FlexCarpiUln Ulnar C8,T1 Nml Nml Nml Nml Nml 0 Nml Complete Right FlexCarpiUln Ulnar C8,T1 Nml Nml Nml Nml Nml 0 Nml Complete Paraspinal EMG ?Side Muscle Nerve Root Ins Act Fibs Psw Comment Right Cervical Upper Rami Nml Nml Nml Right Cervical Mid Rami Nml Nml Nml Right Cervical Lower Rami Nml Nml Nml Left Cervical Upper Rami Nml Nml Nml Left Cervical Mid Rami Nml Nml Nml Left Cervical Lower Rami Nml Nml Nml FINDINGS: Bilateral ulnar motor nerves showed prolonged distal latency, normal amplitude and normal conduction velocity. Right median motor nerve showed prolonged distal latency, normal amplitude and slow conduction velocity. Left median motor nerve showed absent response. Bilateral median sensory nerves showed absent response. Bilateral ulnar sensory nerves showed prolonged peak latency and small amplitudes. All other nerves tested were within normal. Concentric needle EMG was performed in selected muscles of the bilateral upper extremities and cervical paraspinals. Study did not reveal signs of electric abnormalities as shown in the table above. IMPRESSION: 1. This is an abnormal study. 2. There is electrodiagnostic evidence for left severe and right moderate-severe median neuropathy at the wrist, consistent with carpal tunnel syndrome. 3. There is electrodiagnostic evidence for chronic bilateral ulnar neuropathy. 4. There is no electrodiagnostic evidence for brachial plexopathy or cervical radiculopathy. Thank you for your kind referral. Ara Sloan MD, HONG Board Certified, [place] [employer] and Rehabilitation (ABPMR) Board Certified, [place] Board of Electrodiagnostic Medicine (ABEM) CODIN [phone] 2 MTDD
--- OUTSIDE RECORDS SUMMARY | 2024-08-10 08:15 | XMS_ITS | Patient Health Record ---
Author Organization [facility] Address [address] [place] [address] Care Team Providers Care Veterinary Microbiologist Name Role Phone Norris Wadsworth MD Primary Care Provider Pawel Damon Unavailable [phone] Allergies No Known Allergies Reason For Referral [...] Notes Problem Gastro-esophageal reflux disease without esophagitis (570499478) Gastro-esophageal reflux disease without esophagitis (K21.9) Active confirmed Problem Screening for malignant neoplasm of colon (553008653) Encounter for screening for malignant neoplasm of colon (Z12.11) Active confirmed Problem Family History of Cancer of Colon (Situation) (402602742) Family history of colon cancer (Z80.0) Active confirmed Problem Benign neoplasm of stomach (05632883) Gastric polyps (K31.7) Active confirmed Problem Gastroesophageal reflux disease (370885375) GERD (gastroesophageal reflux disease) (K21.9) Active confirmed Problem Loera esophagus (684331231) 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) Active confirmed Problem Diverticulosis of colon (215438863) Diverticulosis of colon (K57.30) Active confirmed Problem Loera's esophagus (339616657) 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) Active confirmed Plan Of Treatment Future Test Test Name Order Date UPPER GI ENDOSCOPY 10/22/2021 COLONOSCOPY 10/22/2021 Insurance Providers Payer Name Payer Address Payer Phone Subscriber Number Group Number Insured Name Patient Relationship to Insured Coverage Start Date Coverage End Date [facility] [address] [place] [address] [id number] CARA DIEGO Self - patient is the insured [facility] [address] [place] [address] [id number] CARA DIEGO Self - patient is the insured Medical (General) History Medical History History ICD Code Hypertension Gout GERD/Esophagitis/Loera's/s mall hiatal hernia-last EGD in 08/[address] Estrada--he has been using omeprazole to many years with fairly good relief of reflux symptoms although he does have occasional nocturnal symptoms Negative screening colonoscopies in 2008 and in 08/2016 Denies [place],DM,CVA,Lung disease,renal dise ase Surgical History Surgery Date(Month/Year) Back surgeries 1989,1997
== END 2024-08-10 08:08 | disposition home or self-care (01) ==
LOC: HO.NEURO 08:07
DX: G56.11 Other lesions of median nerve, right upper limb (principal); G56.23 Lesion of ulnar nerve, bilateral upper limbs
CPT/HCPCS: 95860; 95886; 95911

== ENCOUNTER → 2024-08-10 08:15 | Outpatient (BNV) | payer BC, SELFPAY | PROVIDERS: Visit Provider Physical Medicine & Rehabilitation | DX: G56.03 Carpal tunnel syndrome, bilateral upper limbs (principal); G56.23 Lesion of ulnar nerve, bilateral upper limbs | CPT/HCPCS: 95886; 95911 ==

== ENCOUNTER 2024-08-17 08:15 | Outpatient (AMB) | payer BC, SELFPAY ==
--- NOTE | 2024-08-17 08:17 | A.OFFVIS_ITS ---
Intake Visit Reasons: OV EMG review B/L hands Intake Note: Amos is a 69 year old right hand dominant male who presents today for an EMG/NCS review of his bilateral upper extremities. EMG/NCS done on 08/10/24 IMPRESSION: 1. This is an abnormal study. 2. There is electrodiagnostic evidence for left severe and right moderate-severe median neuropathy at the wrist, consistent with carpal tunnel syndrome. 3. There is electrodiagnostic evidence for chronic bilateral ulnar neuropathy. 4. There is no electrodiagnostic evidence for brachial plexopathy or cervical radiculopathy. Allergies No Known Allergies Allergy (Verified 08/09/24 10:21) HPI HPI OV EMG review B/L hands: Details: Amos is a 69 year old right hand dominant male who presents today for an EMG/NCS review of his bilateral upper extremities. EMG/NCS done on 08/10/24 IMPRESSION: 1. This is an abnormal study. 2. There is electrodiagnostic evidence for left severe and right moderate-severe median neuropathy at the wrist, consistent with carpal tunnel syndrome. 3. There is electrodiagnostic evidence for chronic bilateral ulnar neuropathy. 4. There is no electrodiagnostic evidence for brachial plexopathy or cervical radiculopathy. [facility] Medical History Hypertension GERD (gastroesophageal reflux disease) Barretts esophagus Surgical History H/O colonoscopy History of esophagogastroduodenoscopy (EGD) H/O Spinal surgery History of tonsillectomy Social History Patient Tobacco Use Status: Never used Tobacco Current occupational status: employed Current occupation: [place] [employer] work - Right Handed Review of Systems Const All systems reviewed & are unremarkable except as noted in HPI and below Physical Exam Extrem Other: Neuro: Normal sensation of the tips of all digits of bilateral hands in the office today No thenar or intrinsic wasting. Good APB muscle firing and good finger cross. Vascular: Capillary refill brisk. ROM: Patient can make a fist and extend all their digits. Skin: No lacerations or abrasions noted. General: No ecchymosis. No erythema or evidence of infection. Assessment & Plan Assessment & Plan (1) Bilateral carpal tunnel syndrome: Code(s): G56.03 - Carpal tunnel syndrome, bilateral upper limbs Category: Medical (2) Cubital tunnel syndrome, bilateral: Code(s): G56.23 - Lesion of ulnar nerve, bilateral upper limbs Category: Medical Plan 1. Bilateral carpal tunnel syndrome 2. Bilateral cubital tunnel syndrome Patient is educated about these conditions Patient is educated about the typical recovery and treatment course At this time, patient states he would like to defer any operative intervention until the winter, as he is quite busy at work and does not have time for recovery At this time Patient is educated on the potential risks of prolonging treatment for carpal and cubital tunnel syndromes Patient expresses understanding of these risks Follow-up as needed with any acute concerns Coding Level of Care Code Est Pt Level 3 (15210) Diagnoses Bilateral carpal tunnel syndrome G56.03 Cubital tunnel syndrome, bilateral G56.23
--- OUTSIDE RECORDS SUMMARY | 2024-08-17 08:22 | XMS_ITS | Patient Health Record ---
Author Organization [facility] Address [address] [place] [address] Care Team Providers Care Engineering Specialist Name Role Phone Norris Wadsworth MD Primary Care Provider Pawel Damon Unavailable [phone] Allergies No Known Allergies Reason For Referral [...] Notes Problem Gastro-esophageal reflux disease without esophagitis (475403753) Gastro-esophageal reflux disease without esophagitis (K21.9) Active confirmed Problem Screening for malignant neoplasm of colon (490898713) Encounter for screening for malignant neoplasm of colon (Z12.11) Active confirmed Problem Family History of Cancer of Colon (Situation) (801613637) Family history of colon cancer (Z80.0) Active confirmed Problem Benign neoplasm of stomach (88287248) Gastric polyps (K31.7) Active confirmed Problem Gastroesophageal reflux disease (019703367) GERD (gastroesophageal reflux disease) (K21.9) Active confirmed Problem Loera esophagus (031791588) 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) Active confirmed Problem Diverticulosis of colon (311267581) Diverticulosis of colon (K57.30) Active confirmed Problem Loera's esophagus (337791151) 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) Active confirmed Plan Of Treatment Future Test Test Name Order Date UPPER GI ENDOSCOPY 10/22/2021 COLONOSCOPY 10/22/2021 Insurance Providers Payer Name Payer Address Payer Phone Subscriber Number Group Number Insured Name Patient Relationship to Insured Coverage Start Date Coverage End Date [facility] [address] [place] [address] [id number] CARA DIEGO Self - patient is the insured [facility] [address] [place] [address] [phone] [id number] CARA DIEGO Self - patient is the insured Medical (General) History Medical History History ICD Code Hypertension Gout GERD/Esophagitis/Loera's/s mall hiatal hernia-last EGD in 08/[address] Estrada--he has been using omeprazole to many years with fairly good relief of reflux symptoms although he does have occasional nocturnal symptoms Negative screening colonoscopies in 2008 and in 08/2016 Denies HI,DM,CVA,Lung disease,renal dise ase Surgical History Surgery Date(Month/Year) Back surgeries 1989,1997
== END 2024-08-17 08:29 | disposition home or self-care (01) ==
LOC: HO.HOS 08:15
DX: G56.03 Carpal tunnel syndrome, bilateral upper limbs (principal); G56.23 Lesion of ulnar nerve, bilateral upper limbs
CPT/HCPCS: 99213

== ENCOUNTER 2024-11-16 07:47 | Outpatient (REF) | payer BC, SELFPAY ==
--- OUTSIDE RECORDS SUMMARY | 2024-11-16 07:50 | XMS_ITS | Patient Health Record ---
Author Organization [facility] Address [address] [place] [address] Care Team Providers Care Legal Billing Specialist Name Role Phone Norris Wadsworth MD Primary Care Provider Pawel Damon Unavailable [phone] Allergies No Known Allergies Reason For Referral [...] Notes Problem Gastro-esophageal reflux disease without esophagitis (026971710) Gastro-esophageal reflux disease without esophagitis (K21.9) Active confirmed Problem Screening for malignant neoplasm of colon (082393805) Encounter for screening for malignant neoplasm of colon (Z12.11) Active confirmed Problem Family History of Cancer of Colon (Situation) (571810510) Family history of colon cancer (Z80.0) Active confirmed Problem Benign neoplasm of stomach (02518013) Gastric polyps (K31.7) Active confirmed Problem Gastroesophageal reflux disease (735946758) GERD (gastroesophageal reflux disease) (K21.9) Active confirmed Problem Loera esophagus (757670685) 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) Active confirmed Problem Diverticulosis of colon (401945211) Diverticulosis of colon (K57.30) Active confirmed Problem Loera's esophagus (484242770) 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
[2024-11-16 10:26] LABS: MANUAL DIFF FLAG NO
[2024-11-16 10:37] LABS: Hematocrit 38.4 % (42.0-52.0); Hemoglobin 12.8 g/dl (14.0-18.0); Imm Gran Abs Auto 0.04 X10*3/uL (0.00-0.03); Imm Gran Pct Auto 0.4 % (0.0-0.4); Lymphocytes Absolute Auto 1.8 X10*3/uL (1.2-4.9); Mean Corpuscular HGB Conc 33.3 g/dl (31.0-36.0); Mean Corpuscular Hemoglobin 31.8 pg (27.0-33.0); Mean Corpuscular Volume 95.3 fL (80.0-98.0); NRBC Abs Auto 0.000 X10*3/uL (0.0-0.012); NRBC Pct Auto 0.0 /100WBC (0.0-0.2); Platelet Count 419 X10*3/uL (160-400); Red Blood Count 4.03 X10*6/uL (4.60-5.80); White Blood Count 10.4 X10*3/uL (4.8-10.8)
[2024-11-16 11:07] LABS: Alanine Aminotransferase 21 U/L (0-40); Albumin Level 4.1 g/dL (3.5-5.0); Alkaline Phosphatase 98 U/L (39-117); Anion Gap 13 (12-20); Aspartate Amino Transferase 23 U/L (5-37); Blood Urea Nitrogen 10 mg/dL (9-16); Calcium 8.7 mg/dL (8.4-10.2); Carbon Dioxide 27 mmol/L (22-29); Chloride 105 mmol/L (96-108); Cholesterol 178 mg/dL (<200); Estimated Glomerular Filt Rate > 60; HDL Cholesterol 46 mg/dL (>40); Potassium 4.5 mmol/L (3.3-5.1); Sodium 140 mmol/L (135-145); Total Protein 7.1 g/dL (6.5-8.0); Triglycerides 89 mg/dL (<150)
[2024-11-16 11:15] LABS: Prostate Specific Antigen 0.59 ng/mL (<0.05-4.0)
[2024-11-17 09:34] LABS: Lyme Abs Screen <0.90 index
== END 2024-11-16 07:48 | disposition home or self-care (01) ==
LOC: HO.HMGCLDS 07:47
PROVIDERS: Visit Provider Internal Medicine
DX: Z00.00 Encounter for general adult medical examination without abnormal findings (principal); I10 Essential (primary) hypertension; Z12.5 Encounter for screening for malignant neoplasm of prostate
CPT/HCPCS: 36415; 80053; 80061; 84153; 85025; 86617; 86618

== ENCOUNTER 2024-12-10 08:53 | Outpatient (AMB) | payer BC, SELFPAY ==
[2024-12-10 09:12] VITALS: BP 136/72; PULSE 76; RESP 15; TEMP 36.8; O2SAT 96; BMI 24.8
--- NOTE | 2024-12-10 09:12 | AM.OFFWIN_ITS ---
Intake Vital Signs 12/10/24 09:12 Height 6 ft Weight 183 lb BMI 24.8 BP 136/72 Blood Pressure Location Lt brachial Position Sitting Respiration 15 Pulse 76 Pulse Source Pulse Oximeter Temp 98.2 F Temp Source Oral Pulse Oximetry (%) 96 Oxygen Delivery Method Room Air Intake Visit Reasons: EP lyme symptoms, fatigue, muscle pain Intake Note: Pt is here today c/o muscle aches and joint pain x1mo. in the month or so has had tick bites Patient Tobacco Use Status: Never used Tobacco Allergies No Known Allergies Allergy (Verified 12/10/24 09:12) HPI HPI Comments History of Present Illness Details This is a 69-year-old male who presented to the walk-in clinic with hansa briseno for Lyme disease. Patient states he had a known tick bite to his left mid back approximately 2 months ago. He is unsure how long the tick was embedded. He then developed a red raised circular rash with central clearing to his left mid back several days after the tick bite, which slowly grew and lasted about 1.5 weeks. Patient then started to develop non-specific constitutional symptoms such as fatigue, malaise, arthralgias/myalgias, headaches, neck stiffness, decreased appetite, and chills/sweats. He states these symptoms have been progressively worsening over the past 1 month now. He denies any known/measured fevers. He reports some shortness of breath with heavy exertion but denies dyspnea at rest or chest pain or palpitations. [facility] Medical History Hypertension GERD (gastroesophageal reflux disease) Barretts esophagus Surgical History H/O colonoscopy History of esophagogastroduodenoscopy (EGD) H/O Spinal surgery History of tonsillectomy Social History Patient Tobacco Use Status: Never used Tobacco Current occupational status: employed Current occupation: [employer] work - Right Handed Review of Systems Const All systems reviewed & are unremarkable except as noted in HPI and below Reports no additional complaints Eyes Reports no additional complaints ENT Reports no additional complaints Card Reports no additional complaints Resp Reports no additional complaints GI Reports no additional complaints Reports no additional complaints Musc Reports no additional complaints Skin/Breast Reports system reviewed and no additional complaints, except as documented Neuro Reports no additional complaints Psych Reports no additional complaints Endo Reports no additional complaints [place]/Lymph Reports no additional complaints Aller/Immun Reports no additional complaints Physical Exam Vital Signs: Last Vital Signs Temp 98.2 F 12/10/24 09:12 Pulse 76 12/10/24 09:12 Resp 15 12/10/24 09:12 BP 136/72 12/10/24 09:12 Pulse Ox 96 12/10/24 09:12 Oxygen Delivery Method Room Air 12/10/24 09:12 BMI result Body Mass Index 24.8 Const Other: Vital signs reviewed. Constitutional: Non-toxic appearing. No acute distress. Well-developed and well-nourished. HEENT: Normocephalic and atraumatic. PERRL/EOMI. Skin: Warm and dry. Small area of hyperpigmentation to the left upper back at site of tick bite. No bullseye rash appreciated. Neck: Full and painless range of motion. No cervical lymphadenopathy. Cardio: Regular rate and rhythm. No murmurs, gallops, or rubs. No lower extremity edema. No JVD. Pulmonary: No respiratory distress. No accessory muscle usage. Clear to auscultation bilaterally without wheezing, crackles, or rhonchi. Gastrointestinal: Soft, nontender, and nondistended in all 4 quadrants. Normoactive bowel sounds in all 4 quadrants. Musculoskeletal: Normal range of motion in joints throughout the body. No deformity or other signs of injury. Neuro: Alert and oriented x4. Cranial nerves 2-12 grossly intact. No focal deficits appreciated. Psych: Normal mood and affect. Assessment & Plan Assessment & Plan (1) Suspected Lyme disease: Code(s): R68.89 - Other general symptoms and signs Plan 69-year-old male who presented to the walk-in clinic with concern for Lyme disease. He had a known tick bite about 1.5-2 months ago and has been experiencing non-specific constitutional symptoms as well as description of classic bullseye rash (which is not evident on today's exam) since about 2 weeks following the tick bite. He had a Lyme test on 11/16/24, which was negative, but that would've been early on his illness so the reliability of that test is unclear. Given his description of classic erythema migrans as well as constitutional symptoms and known tick bite, there is high suspicion for early localized Lyme disease. For this reason, I will treat empirically with PO doxycycline 100 mg twice daily x 10 days. Patient has an appointment scheduled with his PCP on 12/27/24 and he was instructed to attend this appointment as scheduled or return to the walk-in clinic sooner if his symptoms do not improved. Patient was educated on the risk of photosensitivity risk with doxycycline and was offered alternative antibiotic regimen as he spends a lot of time outside but patient would like to proceed with doxycycline as this is the preferred treatment. He was educated to wear SPF, long-sleeves/pants while outside in the sun. Patient educated on the signs and symptoms of neurologic and cardiac involvement and was instructed to proceed to the emergency room if he develops any of the symptoms. Patient and his verbalized understanding and they are in agreement with the plan. Medications: New doxycycline hyclate 100 mg PO BID 20 caps 0RF Coding Level of Care Code Est Pt Level 4 (70142) Diagnoses Suspected Lyme disease R68.89
== END 2024-12-10 11:36 | disposition home or self-care (01) ==
PROVIDERS: PCP Physician Assistant; Visit Provider Physician Assistant Medical
DX: R68.89 Other general symptoms and signs (principal)

== ENCOUNTER 2024-12-21 15:14 | Outpatient (AMB) | payer BC, SELFPAY ==
--- NOTE | 2024-12-21 15:15 | MHC.OFFVIS ---
Vital Signs 12/21/24 15:18 Height 6 ft Weight 183 lb BMI 24.8 Pulse 83 Pulse Source Pulse Oximeter Pulse Oximetry (%) 98 Oxygen Delivery Method Room Air Intake Visit Reasons: ? of Lyme ok per Dr. Frias Allergies No Known Allergies Allergy (Verified 12/21/24 15:18) HPI HPI ? of Lyme ok per Dr. Frias: Details: He reports feeling achy last month. He reports tick bite October and since then has felt week. He has had 14 days po Doxycycline and then given script for more. He has no respiratory,cardiac or GI symptoms. [facility]LY [facility] Medical History Hypertension GERD (gastroesophageal reflux disease) Barretts esophagus Surgical History H/O colonoscopy History of esophagogastroduodenoscopy (EGD) H/O Spinal surgery History of tonsillectomy Social History Patient Tobacco Use Status: Never used Tobacco Current occupational status: employed Current occupation: [place] work - Right Handed Review of Systems Const All systems reviewed & are unremarkable except as noted in HPI and below Physical Exam Vital Signs: Last Vital Signs Pulse 83 12/21/24 15:18 Pulse Ox 98 12/21/24 15:18 Oxygen Delivery Method Room Air 12/21/24 15:18 BMI result Body Mass Index 24.8 Const General: cooperative Orientation/consciousness: patient oriented x3 HEENT Head: Yes normal to inspection Mouth: Normal oral and palatal mucosa present Eyes General: appearance normal, both eyes and all related structures Pupils: Equal, round and reactive pupils present Resp Effort & Inspection: normal respiratory effort Cardio Rate: regular rate Rhythm: regular rhythm GI Palpation (GI): Soft to palpation and nontender General: Yes no CVA tenderness Back/Spine/Pelvis Back: no CVA tenderness Skin General skin exam: no rashes or lesions noted Neuro General: patient oriented x3 Cranial nerves: Yes CN's II-XII intact bilaterally and Yes Equal, round and reactive pupils present Extrem General: Yes normal to inspection Psych Appearance: grossly normal Assessment & Plan Assessment & Plan (1) Lyme disease: Comment: Possible Lyme, [place],collagen vascular disease since hand joints involved worse He may have post Lyme achiness. Would give another 10 days Doxycycline to be at one month in case Lyme arthritis but doesnt look like large joints are affected. Follow PCP. Check EKG make sure no cardiac complaints,there are no signs of unresolved disease. Code(s): A69.20 - Lyme disease, unspecified Category: Medical Plan: na Orders: Orders ECG 12 lead EKG 12/21/24 A69.20 - Lyme disease, unspecified Medications: New doxycycline hyclate 100 mg PO BID 10 days 20 caps 0RF doxycycline hyclate 100 mg PO BID 20 caps 0RF 10 days Coding Level of Care Code New Pt Level 3 (26941) Diagnoses Lyme disease A69.20
--- OUTSIDE RECORDS SUMMARY | 2024-12-21 15:17 | XMS_ITS | Patient Health Record ---
Author Organization [facility] Address [address] [place] [address] Care Team Providers Care Fuel Cell Binder Name Role Phone Ermelinda (RETIRED) Norris VELIZ Primary Care Provide r Unavailable Pawel Kowalski Unavailable [phone] Allergies No Known Allergies Reason For Referral No Information Medications Medication SIG (Take, Route, Fr equency, Duration) Notes Start Date End Date Status Lisinopril 10 MG TAKE 1 TABLET BY EVERY DAY Oral for 90 Active Allopurinol [...] Notes Problem Gastro-esophageal reflux disease without esophagitis (657363858) Gastro-esophageal reflux disease without esophagitis (K21.9) Active confirmed Problem Screening for malignant neoplasm of colon (338920130) Encounter for screening for malignant neoplasm of colon (Z12.11) Active confirmed Problem Family History of Cancer of Colon (Situation) (206531535) Family history of colon cancer (Z80.0) Active confirmed Problem Gastric polyps (K31.7) Active confirmed Problem GERD (gastroesophageal reflux disease) (K21.9) Active confirmed Problem Loera esophagus (485115883) 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) Active confirmed Problem Diverticulosis of colon (786217680) Diverticulosis of colon (K57.30) Active confirmed Problem 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) Active confirmed Plan Of Treatment Future Test Test Name Order Date UPPER GI ENDOSCOPY 10/22/2021 COLONOSCOPY 10/22/2021 Insurance Providers Payer Name Payer Address Payer Phone Subscriber Number Group Number Insured Name Patient Relationship to Insured Coverage Start Date Coverage End Date [facility] [address] [place] [address] [id number] CARA DIEGO Self - patient is the insured [facility] [address] [place] [address] [phone] [id number] CARA DIEGO Self - patient is the insured Medical (General) History Medical History History ICD Code Hypertension Gout GERD/Esophagitis/Loera's/s mall hiatal hernia-last EGD in 08/[address] Estrada--he has been using omeprazole to many years with fairly good relief of reflux symptoms although he does have occasional nocturnal symptoms Negative screening colonoscopies in 2008 and in 08/2016 Denies MO,DM,CVA,Lung disease,renal dise ase Surgical History Surgery Date(Month/Year) Back surgeries 1989,1997
[2024-12-21 15:18] VITALS: PULSE 83; O2SAT 98; BMI 24.8
== END 2024-12-21 15:48 | disposition home or self-care (01) ==
LOC: HO.HID 15:14
PROVIDERS: PCP Physician Assistant; Visit Provider Internal Medicine
DX: A69.20 Lyme disease, unspecified (principal)
CPT/HCPCS: 99203

== ENCOUNTER 2024-12-28 09:04 | Outpatient (AMB) | payer BC, SELFPAY ==
--- NOTE | 2024-12-28 09:05 | A.OFFPC_ITS ---
Vital Signs 12/28/24 09:10 12/28/24 09:13 Weight 81.193 kg BP 168/78 H Blood Pressure Location Lt brachial Position Sitting Respiration 16 Pulse 86 Pulse Source Pulse Oximeter Temp 97.5 F Temp Source Temporal Artery Scan Pulse Oximetry (%) 99 Oxygen Delivery Method Room Air Intake Visit Reasons: routine - Croke pt. review CHOL results Drop Wire Aligner Required: No Accompanied by: Spouse Allergies No Known Allergies Allergy (Verified 12/28/24 09:06) Tobacco use date assessed: 12/28/24 HPI HPI Comments History of Present Illness Details 69-year-old male with history of hyperch olesterolemia, gout, hypertension, GERD, vertigo presents to the office today accompanied by his for management of chronic conditions and to establish care. Last seen by prior PCP 06/2024 Hypertension-compliant with lisinopril 10 mg daily improved on recheck but initially 160/78 GERD-controlled with omeprazole Gout-no recent flares. On allopurinol and colchicine Concerns: Polyarthralgia-reports presented to an urgent care on due to severe polyarthralgia. He had recalled a tick bite about 1 month prior to the visit but initially had not thought much of it as [place] However given the polyarthralgia he was concerned and presented to the ED. he was started on doxycycline initially for 2 weeks but extended to 3 weeks though no tick panel was taken. He states that all of his joints except for his feet are in severe pain. He has difficulty standing and getting up as he is very stiff. He has also been incredibly fatigued, sleeping 4 hours all of which are very atypical for him. 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 With movement, reports the pain as a 10/10, sitting more tolerable and Advil helps somewhat. He is also reporting subjective fevers initially as well as mild headaches but denies any vision changes He is also reporting a dry cough that started recently that he describes as annoying. No associated symptoms. Does take lisinopril Health maintenance: Last colonoscopy 11/2021 with 5 year follow-up advised due to tubular adenoma. Dr. Kowalski ROS: General: No fevers, malaise, unintentional weight loss HEENT: No blurred vision, diplopia. No sore throat, nasal congestion, rhinorrhea, sinus pain, ear pain Cardiovascular: No chest pain, palpitations, or leg edema Respiratory: No shortness of breath, wheezing, cough GI: No abdominal pain, nausea, vomiting, diarrhea, constipation, melena, hematochezia : No dysuria, hematuria, increased urinary frequency, decreased urinary output MSK: see hpi Neuro: No headaches, weakness, paresthesias Skin: No rashes or lesions EXAM: Constitutional - Awake and Alert, No apparent distress Eyes - PERRL Cardiovascular - S1S2, RRR, No edema Respiratory - Normal lung expansion, Normal respiratory effort, No respiratory d istress, CTA bilaterally Extremities - no calf tenderness bilaterally, no swelling MSK - no joint erythema/ Swelling noted of the bl hands with limited ROM thoughout, slow to change position, antalgic gait Skin - Warm/Dry Neurological - Alert & oriented x3. CN II-XII iin tact Psychological - Appropriate affect PFSH Medical History (Updated 12/30/24 @ 20:33 by BENJAMIN Mera) Gout Polyarthralgia Hypertension GERD (gastroesophageal reflux disease) Barretts esophagus Surgical History (Updated 12/26/24 @ 16:25 by Subha Casiano) H/O colonoscopy (~11/29/21) History of esophagogastroduodenoscopy (EGD) H/O Spinal surgery History of tonsillectomy Social History Patient Tobacco Use Status: Never used Tobacco e-Cigarette/Vaping Use: Never Used Current occupational status: employed Current occupation: [employer] work - Right Handed Questionnaire PHQ-9 Over the last 2 weeks, how often have you been bothered by any of the following problems? 1. Little interest or pleasure in doing things: not at all 2. Feeling down, depressed, or hopeless: not at all 3. Trouble falling or staying asleep, or sleeping too much: nearly every day 4. Feeling tired or having little energy: nearly every day 5. Poor appetite or overeating: nearly every day 6. Feeling bad about yourself - or that you are a failure or have let yourself or your family down: not at all 7. Trouble concentrating on things, such as reading the newspaper or watching television: not at all 8. Moving or speaking so slowly that other people could have noticed. Or the opposite - being so fidgety or restless that you have been moving around a lot more than usual: nearly every day 9. Thoughts that you would be better off or of hurting yourself in some way: not at all Total score: 12 Source: Developed by Drs. Pawel Renner, Elise Damico, Travon Wood and colleagues, with an educational walker from [employer]. Thrive Questionnaire Date Thrive assessed: 12/28/24 I am a: Patient What is your living situation today?: I have a steady place to live Within the past 12 months, did the food you bought not last and you didn't have the money to get more?: Never true Within the past 12 months, did you worry whether your food would run out before you got money to buy more?: Never true Do you have trouble paying for medicines?: No Do you have trouble getting transportation to medical appointments?: No Do you have trouble paying your heating and electricity bill?: No Do you have trouble taking care of your child, family member or friend?: No Do you have trouble with day-to-day activities such as bathing, preparing meals, shopping, managing finances, etc.?: No Are you currently unemployed and looking for a job?: No Are you interested in more education?: No THRIVE Score: 0 AUDIT C Alcohol Use Questionnaire (AUDIT-C) 1. How often do you have a drink containing alcohol?: 2-4 times a month 2. How many drinks containing alcohol do you have on a typical day when you are drinking?: 1 or 2 Total Score: 2 ELTON-7 AMB Questionnaire ELTON-7 Date ELTON - 7 assessed: 12/28/24 Feeling nervous, anxious, or on edge: 3 = Nearly every day Not being able to stop or control worryin = Not at all Worrying too much about different things: 3 = Nearly every day Trouble relaxin = Nearly every day Being so restless that it is hard to sit still: 0 = Not at all Becoming easily annoyed or irritable: 0 = Not at all Feeling afraid as if something awful might happen: 0 = Not at all Total ELTON-7 score (0-4 normal; 5-9 mild; 10-14 moderate; 15-21 severe): 9 Source: Developed by Drs. Pawel Renner, Elise Damico, Travon Wood and colleagues, with an educational walker from [employer]. Physical exam (Primary Care) Vital Signs: Last Vital Signs Temp 97.5 F 12/28/24 09:13 Pulse 86 12/28/24 09:13 Resp 16 12/28/24 09:13 BP 168/78 H 12/28/24 09:13 Pulse Ox 99 12/28/24 09:13 Oxygen Delivery Method Room Air 12/28/24 09:13 Tobacco/Smoking Status: Tobacco use Status Tobacco use date assessed 12/28/24 12/28/24 09:09 Patient Tobacco Use Status Never used Tobacco 12/28/24 09:09 e-Cigarette/Vaping Use Never Used 12/28/24 09:09 PHQ-9: PHQ-9 Score PHQ-9: Total score 12 12/28/24 09:19 Thrive Assessment: Date of Thrive Assessment Date Thrive assessed 12/28/24 12/28/24 09:16 Coding Level of Care Code New Pt Level 4 (77443) Complex EM visit Add On G2211 Diagnoses Hypertension I10 Polyarthralgia M25.50 Barretts esophagus K22.70 Gout M10.9 Assessment & Plan Assessment & Plan (1) Hypertension: Code(s): I10 - Essential (primary) hypertension Category: Medical Plan: Blood pressure elevated but in significant discomfort, was normal at prior visit 3 days ago. Continue lisinopril for now, dry cough possibly related. He Would like to further investigate polyarthralgia before making changes. (2) Polyarthralgia: Code(s): M25.50 - Pain in unspecified joint Category: Medical Plan: Molecular tick panel ordered though this seems to be less likely tick-borne in nature especially given lack of improvement with the doxycycline he has been taking. Reviewed Infectious Disease note who does say it is possible Lyme, Prolastin, collagen vascular disease given the hand involvement but did recommend continuing doxycycline. Agree with continuation of doxycycline to complete course. Will also check CBC and LDH. Should also consider autoimmune etiology-check ESR, CRP, YUDI ESR, rheumatoid factor. Much less likely to be gout flare but check uric acid Prednisone taper ordered to be taken only after labs have been collected (3) Barretts esophagus: Code(s): K22.70 - Loera's esophagus without dysplasia Category: Medical Plan: Stable. Continue omeprazole (4) Gout: Code(s): M10.9 - Gout, unspecified Category: Medical Plan: Stable. Checking uric acid. Continue allopurinol, colchicine Orders: Orders Lipid Panel 12/28/24 A6. - Lyme disease, unspecified, I10 - Essential (primary) hypertension, M25.50 - Pain in unspecified joint Rheumatoid Factor 12/28/24. - Lyme disease, unspecified, I10 - Essential (primary) hypertension, M25.50 - Pain in unspecified joint YUDI Reflex Titer and Pattern 12/28/24 A6. - Lyme disease, unspecified, I10 - Essential (primary) hypertension, M25.50 - Pain in unspecified joint CRP High Sensitivity 12/28/24 A6. - Lyme disease, unspecified, I10 - Essential (primary) hypertension, M25.50 - Pain in unspecified joint Uric Acid 12/28/24 A6. - Lyme disease, unspecified, I10 - Essential (primary) hypertension, M25.50 - Pain in unspecified joint Tick-borne Disease Molecular 12/28/24 A6.20 - Lyme disease, unspecified, I10 - Essential (primary) hypertension, M25.50 - Pain in unspecified joint Complete Blood Count Auto Diff 12/28/24 A6. - Lyme disease, unspecified, I10 - Essential (primary) hypertension, M25.50 - Pain in unspecified joint Basic Metabolic Panel 12/28/24 A6. - Lyme disease, unspecified, I10 - Essential (primary) hypertension, M25.50 - Pain in unspecified joint Liver Panel 12/28/24 A6. - Lyme disease, unspecified, I10 - Essential (primary) hypertension, M25.50 - Pain in unspecified joint Erythrocyte Sedimentation Rate 12/28/24 A6. - Lyme disease, unspecified, I10 - Essential (primary) hypertension, M25.50 - Pain in unspecified joint Lactate Dehydrogenase 12/28/24 W57.XXXA - Bitten or stung by nonvenomous insect and other nonvenomous arthropods, initial encounter Medications: New prednisone see taper instructions; 40 mg Daily x3 days, 30 mg daily x3 days, 20 mg daily x3 days, 10 mg daily x3 days 10 mg PO DIRECTED 30 tabs 0RF
[2024-12-28 09:13] VITALS: BP 168/78; PULSE 86; RESP 16; TEMP 36.4; O2SAT 99
--- OUTSIDE RECORDS SUMMARY | 2024-12-28 09:46 | XMS_ITS | Patient Health Record ---
Author Organization [facility] Address [address] [place] [address] Care Team Providers Care Penology Teacher Name Role Phone Ermelinda (RETIRED) Norris VELIZ Primary Care Provide r Unavailable Pawel Kowalski Unavailable [phone] Allergies No Known Allergies Reason For Referral [...] Notes Problem Gastro-esophageal reflux disease without esophagitis (615703871) Gastro-esophageal reflux disease without esophagitis (K21.9) Active confirmed Problem Screening for malignant neoplasm of colon (309612078) Encounter for screening for malignant neoplasm of colon (Z12.11) Active confirmed Problem Family History of Cancer of Colon (Situation) (336351067) Family history of colon cancer (Z80.0) Active confirmed Problem Gastric polyps (K31.7) Active confirmed Problem Gastroesophageal reflux disease (960328808) GERD (gastroesophageal reflux disease) (K21.9) Active confirmed Problem Loera esophagu s (K22.70) Active confirmed Problem Diverticulosis of colon (328982893) Diverticulosis of colon (K57.30) Active confirmed Problem 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) Active confirmed Plan Of Treatment Future Test Test Name Order Date UPPER GI ENDOSCOPY 10/22/2021 COLONOSCOPY 10/22/2021 Insurance Providers Payer Name Payer Address Payer Phone Subscriber Number Group Number Insured Name Patient Relationship to Insured Coverage Start Date Coverage End Date [facility] [address] [place] [address] [phone] [id number] CARA DIEGO Self - patient is the insured [facility] [address] [place] [address] [phone] [id number] CARA DIEGO Self - patient is the insured Medical (General) History Medical History History ICD Code Hypertension Gout GERD/Esophagitis/Loera's/s mall hiatal hernia-last EGD in 08/[address] Estrada--he has been using omeprazole to many years with fairly good relief of reflux symptoms although he does have occasional nocturnal symptoms Negative screening colonoscopies in 2008 and in 08/2016 Denies SD,DM,CVA,Lung disease,renal dise ase Surgical History Surgery Date(Month/Year) Back surgeries 1989,1997
== END 2024-12-28 09:41 | disposition home or self-care (01) ==
LOC: HO.HMCHD 09:04
PROVIDERS: Visit Provider Physician Assistant
DX: I10 Essential (primary) hypertension (principal); M25.50 Pain in unspecified joint; K22.70 Barrett's esophagus without dysplasia; M10.9 Gout, unspecified

== ENCOUNTER 2024-12-28 09:04 | Outpatient (REF) | payer BC, SELFPAY | END 2024-12-28 09:05 | disposition home or self-care (01) | LOC: HO.LAB 09:04 | PROVIDERS: Visit Provider Physician Assistant | DX: Z13.89 Encounter for screening for other disorder (principal) ==

== ENCOUNTER 2024-12-28 09:46 | Outpatient (REF) | payer BC, SELFPAY ==
[2024-12-28 11:02] LABS: MANUAL DIFF FLAG NO
[2024-12-28 11:16] LABS: Hematocrit 37.7 % (42.0-52.0); Hemoglobin 12.4 g/dl (14.0-18.0); Imm Gran Abs Auto 0.07 X10*3/uL (0.00-0.03); Imm Gran Pct Auto 0.5 % (0.0-0.4); Lymphocytes Absolute Auto 1.9 X10*3/uL (1.2-4.9); Mean Corpuscular HGB Conc 32.9 g/dl (31.0-36.0); Mean Corpuscular Hemoglobin 30.5 pg (27.0-33.0); Mean Corpuscular Volume 92.6 fL (80.0-98.0); NRBC Abs Auto 0.000 X10*3/uL (0.0-0.012); NRBC Pct Auto 0.0 /100WBC (0.0-0.2); Platelet Count 578 X10*3/uL (160-400); Red Blood Count 4.07 X10*6/uL (4.60-5.80); White Blood Count 14.7 X10*3/uL (4.8-10.8)
[2024-12-28 11:37] LABS: Alanine Aminotransferase 18 U/L (0-40); Albumin Level 4.1 g/dL (3.5-5.0); Alkaline Phosphatase 92 U/L (39-117); Anion Gap 15 (12-20); Aspartate Amino Transferase 20 U/L (5-37); Blood Urea Nitrogen 9 mg/dL (9-16); Calcium 9.4 mg/dL (8.4-10.2); Carbon Dioxide 28 mmol/L (22-29); Chloride 101 mmol/L (96-108); Cholesterol 169 mg/dL (<200); Estimated Glomerular Filt Rate > 60; HDL Cholesterol 34 mg/dL (>40); Potassium 4.5 mmol/L (3.3-5.1); Sodium 139 mmol/L (135-145); Total Protein 7.2 g/dL (6.5-8.0); Triglycerides 97 mg/dL (<150); Uric Acid 5.2 mg/dL (3.4-7.0)
[2024-12-31 12:43] LABS: ANA Titer 3 1:40 titer; Anti Nuclear Antibody Screen POSITIVE (NEGATIVE); Anti Nuclear Antibody Titer 1:320 titer
== END 2024-12-28 09:47 | disposition home or self-care (01) ==
LOC: HO.10HDL 09:46
PROVIDERS: Visit Provider Physician Assistant
DX: A69.20 Lyme disease, unspecified (principal); M25.50 Pain in unspecified joint; I10 Essential (primary) hypertension; Z01.84 Encounter for antibody response examination
CPT/HCPCS: 36415; 80048; 80061; 80076; 83615; 84550; 85025; 85652; 86038; 86039; 86140; 86141; 86431

== ENCOUNTER 2025-01-26 07:20 | Outpatient (REF) | payer BC, SELFPAY ==
[2025-01-26 13:32] LABS: MANUAL DIFF FLAG NO
[2025-01-26 13:39] LABS: Hematocrit 38.0 % (42.0-52.0); Hemoglobin 12.5 g/dl (14.0-18.0); Imm Gran Abs Auto 0.13 X10*3/uL (0.00-0.03); Imm Gran Pct Auto 0.8 % (0.0-0.4); Lymphocytes Absolute Auto 2.6 X10*3/uL (1.2-4.9); Mean Corpuscular HGB Conc 32.9 g/dl (31.0-36.0); Mean Corpuscular Hemoglobin 30.3 pg (27.0-33.0); Mean Corpuscular Volume 92.2 fL (80.0-98.0); NRBC Abs Auto 0.000 X10*3/uL (0.0-0.012); NRBC Pct Auto 0.0 /100WBC (0.0-0.2); Platelet Count 358 X10*3/uL (160-400); Red Blood Count 4.12 X10*6/uL (4.60-5.80); White Blood Count 15.7 X10*3/uL (4.8-10.8)
[2025-01-26 13:58] LABS: Alanine Aminotransferase 37 U/L (0-40); Albumin Level 4.0 g/dL (3.5-5.0); Alkaline Phosphatase 83 U/L (39-117); Anion Gap 12 (12-20); Aspartate Amino Transferase 26 U/L (5-37); Blood Urea Nitrogen 16 mg/dL (9-16); Calcium 9.6 mg/dL (8.4-10.2); Carbon Dioxide 28 mmol/L (22-29); Chloride 101 mmol/L (96-108); Estimated Glomerular Filt Rate > 60; Potassium 4.3 mmol/L (3.3-5.1); Sodium 137 mmol/L (135-145); Total Protein 6.9 g/dL (6.5-8.0); Uric Acid 5.8 mg/dL (3.4-7.0)
[2025-01-27 08:34] LABS: HBS Num1 0.00 mIU/mL (0-7.99); HBc Num1 0.05 S/CO (0.00-0.79); HBsAGNum1 0.48 S/CO (0.00-0.99); HIV Num 1 0.04 S/CO (0.00-0.99); Hepatitis A Antibody IgM 0.15 Index (0-0.79); Hepatitis B Surface Antigen Negative (Negative); ~HepC Num1 0.40 S/CO (0.00-0.79); ~Hepatitis A Antibody IgM Nonreactive (Nonreactive); ~Hepatitis B Surface Antibody NONREACTIVE (Nonreactive); ~Hepatitis C Antibody Nonreactive (Nonreactive)
[2025-01-27 21:53] LABS: PES - Abn Protein Band 1 0.3 g/dL (NONE DETECTED); Prot Elec - Albumin 3.7 g/dL (3.8-4.8); Prot Elec - Alpha1 0.4 g/dL (0.2-0.3); Prot Elec - Alpha2 1.0 g/dL (0.5-0.9); Prot Elec - Beta 1 0.4 g/dL (0.4-0.6); Prot Elec - Beta 2 0.4 g/dL (0.2-0.5); Prot Elec - Gamma 0.9 g/dL (0.8-1.7); Prot Elec - Total Protein 6.8 g/dL (6.1-8.1)
[2025-01-31 03:08] LABS: TS Negative Control Passed; TS Panel A 0; TS Panel B 0; TS Positive Control Passed; TSpotTB Negative (Negative)
[2025-01-31 16:53] LABS: Antibody to SS-A Antigen <1.0 NEG AI (<1.0 NEG); Antibody to SS-B Antigen <1.0 NEG AI (<1.0 NEG); SM/Ribonucleoprotein Ab <1.0 NEG AI (<1.0 NEG); Smith Protein <1.0 NEG AI (<1.0 NEG)
== END 2025-01-26 07:21 | disposition home or self-care (01) ==
LOC: CF 07:20
PROVIDERS: PCP Physician Assistant; Visit Provider Student in an Organized Health Care Education/Training Program
DX: M1A.09X0 Idiopathic chronic gout, multiple sites, without tophus (tophi) (principal); M19.90 Unspecified osteoarthritis, unspecified site; M79.89 Other specified soft tissue disorders; M79.641 Pain in right hand; M79.642 Pain in left hand; M25.531 Pain in right wrist; M25.532 Pain in left wrist; Z51.81 Encounter for therapeutic drug level monitoring; Z01.84 Encounter for antibody response examination; Z11.4 Encounter for screening for human immunodeficiency virus [HIV]; Z11.1 Encounter for screening for respiratory tuberculosis; Z79.899 Other long term (current) drug therapy; Z79.631 Long term (current) use of antimetabolite agent
CPT/HCPCS: 36415; 80053; 82784; 84165; 84550; 85025; 85652; 86140; 86160; 86200; 86225; 86235; 86334; 86481; 86704; 86706; 86709; 86803; 87340; 87389

== ENCOUNTER 2025-01-26 07:20 | Outpatient (AMB) | payer BC, SELFPAY ==
--- OUTSIDE RECORDS SUMMARY | 2025-01-26 07:24 | XMS_ITS | Patient Health Record ---
Author Organization [facility] Address [address] [place] [address] Care Team Providers Care Freight Traffic Consultant Name Role Phone Ermelinda (RETIRED) Norris VELIZ Primary Care Provide r Unavailable Pawel Kowalski Unavailable [phone] Allergies No Known Allergies Reason For Referral [...] Notes Problem Gastro-esophageal reflux disease without esophagitis (784454987) Gastro-esophageal reflux disease without esophagitis (K21.9) Active confirmed Problem Screening for malignant neoplasm of colon (127914194) Encounter for screening for malignant neoplasm of colon (Z12.11) Active confirmed Problem Family History of Cancer of Colon (Situation) (271334460) Family history of colon cancer (Z80.0) Active confirmed Problem Benign neoplasm of stomach (81093432) Gastric polyps (K31.7) Active confirmed Problem Gastroesophageal reflux disease (109264030) GERD (gastroesophageal reflux disease) (K21.9) Active confirmed Problem Loera esophagus (161752367) 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) Active confirmed Problem Diverticulosis of colon (771163584) Diverticulosis of colon (K57.30) Active confirmed Problem Loera's esophagus (386896377) 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) Active confirmed Plan Of Treatment Future Test Test Name Order Date UPPER GI ENDOSCOPY 10/22/2021 COLONOSCOPY 10/22/2021 Insurance Providers Payer Name Payer Address Payer Phone Subscriber Number Group Number Insured Name Patient Relationship to Insured Coverage Start Date Coverage End Date [facility] [address] [place] [address] [phone] [id number] CARA DIEGO Self - patient is the insured [facility] [address] [place] [address] [id number] CARA DIEGO Self - patient is the [...]
--- NOTE | 2025-01-26 07:34 | A.OFFVIS_ITS ---
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 Patient c/o of neck pain, bilateral shoulder pain, bilateral wrist pain, bilateral hand pain, lower back pain, bilateral hip pain and bilateral knee pain. Both hands become stiff and swollen. Patient stated he has had these symptoms for four months. Patient is taking tapering on Prednisone and he stated he is down to 10 mg tablet and the pain is back. Allergies No Known Allergies Allergy (Verified 01/26/25 07:45) Medication List - Last Reconciled 01/26/25 by Pati Martinez MD allopurinol 300 mg PO DAILY colchicine Take 2 tab oral at first sign of gout flare following by 1 tab one hour later, then continue one tablet oral once daily lisinopril 10 mg PO DAILY omeprazole 20 mg PO DAILY prednisone 10 mg PO DIRECTED HPI Comments Details: Patient is a 69-year-old male with hypertension, GERD complicated by Loera's esophagus, non crystal proven non tophaceous gout here today for evaluation of hand pain and swelling Patient presented to walk in clinic 12/10/2024 wrists concern for Lyme disease. Two weeks prior to presenting he had a known tick bite of unknown duration but developed the classic erythema migrans rash with the bull's eye appearance with central clearing. He was given 10 days of doxycycline but his symptoms did not improve. He subsequently followed up with Infectious Disease who gave him further courses of doxycycline but this did not help. Continued to have hand swelling and pain. Was given a course of prednisone which helped to alleviate some of his symptoms. Labs for Lyme disease negative Found to have positive YUDI on testing by PCP Denies photosensitivity, alopecia, oral/nasal ulcers, sicca symptoms, lymphadenopathy, chest pain/shortness of breath, foamy urine, lower extremity edema, muscle weakness Also denies history of seizure, CVA, psychosis, history of kidney problems, history of cytopenias, history of VTE including PE or DVTs Prior to this he did have a history of gout for which she was taking allopurinol and colchicine 2 to 3 times a year for flares involving his feet and his knees otherwise patient notes he was a well male [facility] Medical History (Updated 01/26/25 @ 09:43 by Pati Martinez MD) Inflammatory arthritis Gout Polyarthralgia Hypertension GERD (gastroesophageal reflux disease) Barretts esophagus Surgical History H/O colonoscopy (~11/29/21) History of esophagogastroduodenoscopy (EGD) H/O Spinal surgery History of tonsillectomy Social History (Updated 01/26/25 @ 07:47 by JONEL Srinivasan) Household Members: Spouse Housing: House Alcohol intake: former Comment: Occassionally Patient Tobacco Use Status: Never used Tobacco e-Cigarette/Vaping Use: Never Used Current occupational status: employed Current occupation: [employer] work - Right Handed Review of Systems Const Details: Review of Systems Constitutional: Denies fever, chills, weight loss ENT: Denies vision changes, eye pain or eye redness, dental caries, dry mouth GI: Denies nausea, vomiting, diarrhea, abdominal pain, change in BM Pulm: Denies SOB, SCHROEDER, hemoptysis, wheezing Cards: Denies chest pain, palpitations COURT ADMINISTRATOR: Denies headaches, weakness, paresthesias, recurrent falls MSK: as per HPI All other systems reviewed and are unremarkable except noted above Physical Exam Exam Exam: Vital signs reviewed Physical Examination CONSTITUITIONAL Patient alert and cooperative. Well appearing and in no apparent painful distress MSK Hands * Right Hand: Not able to make a full fist. There is swelling noted throughout the hands with TTP of the 5th PIP and scattered MCPs * Left Hand: Not able to make a full fist. There is swelling noted throughout the hands with TTP of the 5th PIP and scattered MCPs Wrists * Right Wrist: No swelling or TTP * Left Wrist: No swelling or TTP Elbows * Right Elbow: Full ROM. No swelling or TTP. No TTP of the medial epicondyle. No TTP of the lateral epicondyle * Left Elbow: Full ROM. No swelling or TTP. No TTP of the medial epicondyle. No TTP of the lateral epicondyle Shoulders * Right shoulder: Full ROM. No swelling noted. No TTP of the AC joint. No TTP of the subacromial bursa. No TTP of the posterior shoulder * Left shoulder: Full ROM. No swelling noted. No TTP of the AC joint. No TTP of the subacromial bursa. No TTP of the posterior shoulder Knees * Right knee: No swelling noted. TTP of the knee joint line. No TTP of pes anserine bursa * Left knee: No swelling noted. TTP of the knee joint line. No TTP of pes anserine bursa. Ankles * Right ankle: Good ankle dorsiflexion and plantar flexion. No swelling. No TTP of the ankle joint * Left ankle: Good ankle dorsiflexion and plantar flexion. No swelling. No TTP of the ankle joint Feet * Right foot: Negative squeeze test. Onycholysis of the great toe * Left foot: Negative squeeze test Tender points? * No tenderness to palpation of the bilateral trapezius, supraspinatus, anterior costochondral junctions, bilateral suboccipital muscle insertions SKIN No rashes Vital Signs: Last Vital Signs Pulse 87 01/26/25 07:48 BP 154/80 H 01/26/25 07:48 Pulse Ox 99 01/26/25 07:48 Oxygen Delivery Method Room Air 01/26/25 07:48 BMI result Body Mass Index 24.3 Results Reviewed Results Reviewed: Laboratory Tests 12/28/24 09:55 WBC 14.7 H RBC 4.07 L Hgb 12.4 L Hct 37.7 L Plt Count 578 H D ESR 82 H Sodium 139 Potassium 4.5 Chloride 101 Carbon Dioxide 28 BUN 9 Creatinine 0.66 AST 20 ALT 18 C-Reactive Protein 11.87 H Laboratory Tests 12/28/24 09:55 Rheumatoid Factor < 13.0 YUDI Screen POSITIVE A YUDI Titer 1:320 H YUDI Titer 2 1:80 H YUDI Titer 3 1:40 H XR Right Hand 10/2023 FINDINGS: No fracture or dislocation. 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 There is volar subluxation of the second and third MCP joints. No cortical erosion. Soft tissues are unremarkable. 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 There is volar subluxation of the second and third MCP joints. Assessment & Plan Assessment & Plan (1) Inflammatory arthritis: Code(s): M19.90 - Unspecified osteoarthritis, unspecified site Category: Medical Plan: #Inflammatory arthritis Patient is a 69-year-old male with history of non tophaceous non crystal proven gout here today for evaluation of bilateral hand swelling, stiffness in the shoulders and hips and elevated inflammatory markers. He does report a history of having a tick bite and the classic erythema migrans rash. 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 However if he did not have this tick bite his symptoms would actually be more consistent with PMR especially given his high inflammatory markers, age over 50 and stiffness involving his shoulders and hips as well as this infl ammatory arthritis. He does have good response to prednisone as well especially at 20 mg which also leads me to more of a PMR type picture. However the history of the tick bite can not be ignored and it may be related to a reactive arthritis which can also produce this inflammatory type symptoms and picture. That being said he is definitely has an inflammatory arthritis we will need to do more evaluations to determine if it is related to PMR or if this is a reactive arthritis in the setting of Lyme. His Lyme titers are normal which we would not expect post Lyme exposure so that leads me to believe the diagnosis of Lyme me being less likely. We will move forward with treating him for an inflammatory arthritis/PMR type picture with prednisone and methotrexate Plan - Prednisone 15mg x 4 weeks then 10mg x 4 weeks then 9mg x 4 weeks then follow up - Methotrexate 15mg PO weekly - Folic acid 1 mg daily - Labs today: CBC, CMP, ESR, CRP, CCP, Rodriguez, Sjogren's antibodies, immunofixation, SPEP, complement, double-stranded DNA - XRs hands and wrists - RTC 3 months - Labs before visit: CBC, CMP, ESR, CRP (2) Gout: Code(s): M10.9 - Gout, unspecified Category: Medical Qualifiers: Gout site: multiple sites Gout etiology: idiopathic Chronicity: chronic Presence of tophus: without tophus Qualified Code(s): M1A.09X0 - Idiopathic chronic gout, multiple sites, without tophus (tophi) Plan: #Non crystal proven non tophaceous gout Patient with a history of gout currently on allopurinol. States that he gets 2- 3 flares of his gout per year which leads me to believe that his gout is not well-controlled. We will check uric acid Plan - Labs today: Uric Acid - Continue Allopurinol 300mg for now, if UA > 5 will increase dose (3) Encounter for methotrexate monitoring: Code(s): Z51.81 - Encounter for therapeutic drug level monitoring; Z79.631 - long term care administrator (current) use of antimetabolite agent Plan: #Long-term Current Use of Methotrexate Discussed with patient the benefits and risks of methotrexate for managing their rheumatic condition Benefits include reduced pain, reduced mortality, maintenance of remission and reduction of flares Risks include oral ulcers, photosensitivity, hepatotoxicity, hematologic toxicity, pneumonitis, flu-like symptoms (especially day after administration), nodulosis, lymphomas ? Limit alcohol and avoid Bactrim ? Monitoring: CBC, BMP, LFTs every 3-4 months and hepatitis serologies as needed (4) Encounter for monitoring allopurinol therapy: Code(s): Z51.81 - Encounter for therapeutic drug level monitoring; Z79.899 - Other [facility] (current) drug therapy Plan: #Long-term Current Use of Allopurinol Risks and benefits of allopurinol discussed with patient Benefits include decreased gout flares, remission of gout and reduction of tophi Risks include allopurinol hypersensitivity syndrome which is a severe cutaneous adverse reaction associated with allopurinol use particularly in patients who are HLA B*5801 positive, increased transaminases, GI upset including diarrhea, nausea and vomiting, and other dermatologic manifestations. Plan I spent 45 minutes reviewing the record and labs, taking a history, examining the patient, discussing the treatment plan, ordering diagnostic work up and documenting in the medical record Orders: Orders Comprehensive Met. Panel Today M19.90 - Unspecified osteoarthritis, unspecified site Complete Blood Count Auto Diff Today M19.90 - Unspecified osteoarthritis, unspecified site Hepatitis A,B,C Profile Today M19.90 - Unspecified osteoarthritis, unspecified site T Spot TB Today M19.90 - Unspecified osteoarthritis, unspecified site Anti DNA DS Antibody Today M19.90 - Unspecified osteoarthritis, unspecified site Sjogren's Antibodies Today M19.90 - Unspecified osteoarthritis, unspecified site Cyclic Citrullinated Peptide Today M19.90 - Unspecified osteoarthritis, unspecified site XR wrist RT min 3V Today M19.90 - Unspecified osteoarthritis, unspecified site XR hand RT min 3V Today - Unspecified osteoarthritis, unspecified site Complete Blood Count Auto Diff 3 Months - Unspecified osteoarthritis, unspecified site Comprehensive Met. Panel 3 Months - Unspecified osteoarthritis, unspecified site C Reactive Protein Today - Unspecified osteoarthritis, unspecified site Erythrocyte Sedimentation Rate Today - Unspecified osteoarthritis, unspecified site Uric Acid Today - Unspecified osteoarthritis, unspecified site Sm Sm/SQUARE CUTTER Antibodies Today - Unspecified osteoarthritis, unspecified site Complement C3 Today - Unspecified osteoarthritis, unspecified site Complement C4 Today - Unspecified osteoarthritis, unspecified site Protein Electrophoresis, Serum Today - Unspecified osteoarthritis, unspecified site Scleroderma 70 Antibody Today - Unspecified osteoarthritis, unspecified site Immunoglobulins,IgG IgA IgM Today - Unspecified osteoarthritis, unspecified site Immunofixation Pnl, Serum Today - Unspecified osteoarthritis, unspecified site HIV Ab/Ag Today - Unspecified osteoarthritis, unspecified site XR wrist LT min 3V Today - Unspecified osteoarthritis, unspecified site XR hand LT min 3V Today - Unspecified osteoarthritis, unspecified site C Reactive Protein 3 Months - Unspecified osteoarthritis, unspecified si te Erythrocyte Sedimentation Rate 3 - Unspecified osteoarthritis, unspecified site Medications: New prednisone Taper: Take 3 tablets for 4 weeks then 2 tablets for 4 weeks then 1 tablet (along with 4 tablets of the prednisone 1mg) for 4 weeks 5 mg PO DIRECTED 120 tabs 0RF - Unspecified osteoarthritis, unspecified site prednisone Take 4 tablets daily for 4 weeks (along with 5mg for a total of 9mg) 1 mg PO DAILY 115 tabs 0RF - Unspecified osteoarthritis, unspecified site methotrexate sodium 15 mg (6 x 2.5 mg) PO QWEEK 78 tabs 1RF 90 days - Unspecified osteoarthritis, unspecified site folic acid 1 mg PO DAILY 90 tabs 1RF - Unspecified osteoarthritis, unspecified site Discontinued prednisone see taper instructions; 60mg x 3 days, then 40mg x3 days, then 20mg x 3 days, then 10mg x3 days, then 5mg x3days Discontinued Reason: Doctor's Order 10 mg PO DIRECTED 42 tabs 0RF Coding Level of Care Code New Pt Level 4 (48161) Complex EM visit Add On G2211 Diagnoses Inflammatory arthritis M19.90 Idiopathic chronic gout of multiple sites without tophus M1A.09X0 Gout site: multiple sites Gout etiology: idiopathic Chronicity: chronic Presence of tophus: without tophus Encounter for methotrexate monitoring Z51.81; Z79.631 Encounter for monitoring allopurinol therapy Z51.81; Z79.899
[2025-01-26 07:48] VITALS: BP 154/80; PULSE 87; O2SAT 99; BMI 24.3
== END 2025-01-26 08:39 | disposition home or self-care (01) ==
LOC: HO.RHES 07:21
PROVIDERS: PCP Physician Assistant; Visit Provider Student in an Organized Health Care Education/Training Program
DX: M19.90 Unspecified osteoarthritis, unspecified site (principal); M1A.09X0 Idiopathic chronic gout, multiple sites, without tophus (tophi); Z51.81 Encounter for therapeutic drug level monitoring; Z79.631 Long term (current) use of antimetabolite agent; Z79.899 Other long term (current) drug therapy
CPT/HCPCS: 99204

== ENCOUNTER → 2025-02-28 14:07 | Outpatient (BNV) | payer BC, SELFPAY | PROVIDERS: PCP Physician Assistant; Visit Provider Internal Medicine | DX: D47.2 Monoclonal gammopathy (principal); D64.9 Anemia, unspecified | CPT/HCPCS: 99204 ==

== ENCOUNTER 2025-03-03 10:08 | Outpatient (REF) | payer BC, SELFPAY ==
--- NOTE | ~2025-03-03 | XR_ITS ---
EXAMINATION: XR BONE SURVEY, COMPLETE CLINICAL INFORMATION: MGUS, ?bone lesions COMPARISON: None available. TECHNIQUE: X-ray bone survey including lateral skull, lateral and AP spine, lateral T and L-spine, AP pelvis, PA chest, bilateral upper extremity and bilateral lower extremities in the AP projection FINDINGS: Lateral skull: No lytic or blastic lesions. Mandibular dental hardware is noted. Cervical spine: There is mild to moderate disc space narrowing more advanced at C6-7. There are endplate osteophytes. There is narrowing of facet joint spaces. No lytic or blastic lesions are noted. T-spine: There are flowing osteophytes anteriorly with minimal disc space narrowing. No lytic or blastic lesions. L-spine: There are endplate osteophytes most advanced at L3-4 and L4-5. There is facet sclerosis is most advanced at L3-4, L4-5, and L5-S1. There is atherosclerotic calcification in the aorta. No lytic or blastic lesions are noted. Chest x-ray: Lungs are clear. Heart size is normal. There are healed anterior right ninth and 10th rib fractures. No bony lesions are identified. Pelvis: There are surgical clips projecting over the scrotum likely related to mastectomy. No lytic or blastic lesions are noted. Left upper extremity: There is chondrocalcinosis in the triangular fibrocartilage. There is moderate narrowing, sclerosis, and marginal osteophytes involving the first CMC joint. There is narrowing and sclerosis of the STT joint. There are small marginal osteophytes involving the elbow joint. There is mild degenerative change in the glenohumeral joint and AC joint. There is small soft tissue ossification in the soft tissues lateral to the lateral humeral condyle. No lytic or blastic lesions are identified. Right upper extremity: There is chondrocalcinosis in the triangular fibrocartilage. Mild degenerative changes with osteophytes noted of the AC joint, glenohumeral joint, and apical joint. There are moderate degenerative changes with osteophytes and some subchondral sclerosis involving the first MCP joint and STT joint of the wrist. There is moderate-sized ossification in the soft tissues lateral to the lateral humeral epicondyle. No lytic or blastic lesions are identified. Left lower extremity: There are moderate vascular calcifications in the lower leg and mild calcification in the common femoral artery. No lytic or blastic lesions are identified. Right lower extremity: No lytic or blastic lesions are identified. Mild atherosclerotic calcifications are seen in the lower leg. XR/XR bone survey IMPRESSION: No lytic or blastic lesions are identified. Degenerative changes, as above. Healed anterior right ninth and 10th rib fractures. Multifocal vascular calcifications, as noted above. Electronically signed by: Maximiliano Walden MD 03/03/2025 11:13 AM EDT
--- OUTSIDE RECORDS SUMMARY | 2025-03-03 11:30 | XMS_ITS | Patient Health Record ---
Author Organization [facility] Address [address] [place] [address] Care Team Providers Care Engineering Officer Name Role Phone Ermelinda (RETIRED) Norris VELIZ Primary Care Provide r Pawel Richards Unavailable [phone] Allergies No Known Allergies Reason For Referral No Information Medications Medication SIG (Take, Route, Fr equency, Duration) Notes Start Date End Date Status Lisinopril 10 MG TAKE 1 TABLET BY PIA EVERY DAY Oral; Duration: 90 Active Allopurinol 300 MG Oral; Duration: 90 Active Omeprazole 20 MG Oral; Duration: 90 Active Immunizations Vaccine Route Administration Date Status Comme [...] Notes Problem Gastro-esophageal reflux disease without esophagitis (975411856) Gastro-esophageal reflux disease without esophagitis (K21.9) Active confirmed Problem Screening for malignant neoplasm of colon (391677422) Encounter for screening for malignant neoplasm of colon (Z12.11) Active confirmed Problem Family History of Cancer of Colon (Situation) (186643394) Family history of colon cancer (Z80.0) Active confirmed Problem Benign neoplasm of stomach (52099979) Gastric polyps (K31.7) Active confirmed Problem Gastroesophageal reflux disease (722571822) GERD (gastroesophageal reflux disease) (K21.9) Active confirmed Problem Loera esophagus (894411999) 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) Active confirmed Problem Diverticulosis of colon (767199555) Diverticulosis of colon (K57.30) Active confirmed Problem Loera's esophagus (130555668) 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) Active confirmed Plan Of Treatment Future Test Test Name Order Date UPPER GI ENDOSCOPY 10/22/2021 COLONOSCOPY 10/22/2021 Insurance Providers Payer Name Payer Address Payer Phone Subscriber Number Group Number Insured Name Patient Relationship to Insured Coverage Start Date Coverage End Date [facility] [address] [place] [address] [phone] [id number] CARA DIEGO Self - patient is the insured [facility] [address] [place] [address] [id number] CARA DIEGO Self - patient is the [...]
== END 2025-03-03 10:09 | disposition home or self-care (01) ==
LOC: HO.HMGCX 10:08
PROVIDERS: PCP Physician Assistant; Visit Provider Internal Medicine
DX: D89.0 Polyclonal hypergammaglobulinemia (principal); D64.9 Anemia, unspecified
CPT/HCPCS: 77075

== ENCOUNTER → 2025-03-03 10:20 | Outpatient (BNV) | payer BC, SELFPAY | PROVIDERS: PCP Physician Assistant; Visit Provider Radiology Diagnostic Radiology | DX: D47.2 Monoclonal gammopathy (principal) | CPT/HCPCS: 77075 ==

== ENCOUNTER 2025-04-27 07:25 | Outpatient (REF) | payer BC, SELFPAY ==
[2025-04-27 14:18] LABS: MANUAL DIFF FLAG NO
[2025-04-27 14:30] LABS: Hematocrit 43.9 % (42.0-52.0); Hemoglobin 14.2 g/dl (14.0-18.0); Imm Gran Abs Auto 0.05 X10*3/uL (0.00-0.03); Imm Gran Pct Auto 0.5 % (0.0-0.4); Lymphocytes Absolute Auto 2.3 X10*3/uL (1.2-4.9); Mean Corpuscular HGB Conc 32.3 g/dl (31.0-36.0); Mean Corpuscular Hemoglobin 31.0 pg (27.0-33.0); Mean Corpuscular Volume 95.9 fL (80.0-98.0); NRBC Abs Auto 0.000 X10*3/uL (0.0-0.012); NRBC Pct Auto 0.0 /100WBC (0.0-0.2); Platelet Count 355 X10*3/uL (160-400); Red Blood Count 4.58 X10*6/uL (4.60-5.80); White Blood Count 9.5 X10*3/uL (4.8-10.8)
[2025-04-27 14:45] LABS: Alanine Aminotransferase 25 U/L (0-40); Albumin Level 4.4 g/dL (3.5-5.0); Alkaline Phosphatase 85 U/L (39-117); Anion Gap 12 (12-20); Aspartate Amino Transferase 23 U/L (5-37); Blood Urea Nitrogen 14 mg/dL (9-16); Calcium 9.3 mg/dL (8.4-10.2); Carbon Dioxide 27 mmol/L (22-29); Chloride 104 mmol/L (96-108); Estimated Glomerular Filt Rate > 60; Potassium 4.3 mmol/L (3.3-5.1); Sodium 139 mmol/L (135-145); Total Protein 7.1 g/dL (6.5-8.0)
== END 2025-04-27 07:26 | disposition home or self-care (01) ==
LOC: HO.HKASLDS 07:25
PROVIDERS: PCP Physician Assistant; Visit Provider Student in an Organized Health Care Education/Training Program
DX: M1A.09X0 Idiopathic chronic gout, multiple sites, without tophus (tophi) (principal); M19.90 Unspecified osteoarthritis, unspecified site; Z51.81 Encounter for therapeutic drug level monitoring; Z79.899 Other long term (current) drug therapy
CPT/HCPCS: 36415; 80053; 85025; 85652; 86140

== ENCOUNTER 2025-04-27 07:25 | Outpatient (AMB) | payer BC, SELFPAY ==
--- OUTSIDE RECORDS SUMMARY | 2025-04-27 07:29 | XMS_ITS | Patient Health Record ---
Author Organization [facility] Address [address] [place] [address] Care Team Providers Care Commercial Drone Software Developer Name Role Phone Ermelinda (RETIRED) Norris VELIZ Primary Care Provide r Pawel Richards Unavailable [phone] Allergies No Known Allergies Reason For Referral No Information Medications Medication SIG (Take, Route, Frequency, Duration) Notes Start Date End Date Status Lisinopril 10 MG Tablet TAKE 1 TABLET BY MOUTH EVERY DAY Oral; Duration: 90 Active Allopurinol 300 MG Tablet Oral; Duration: 90 Active Omeprazole 20 MG Capsule Delayed Release Oral; Duration: 90 Active Immunizations Vaccine Route Administration Date Status Comme nts Influenza Unknown 10/22/2021 Refused Social History Tobacco Use: Social History Observation Description Date Details (start date - stop date) Never Smoker NA - NA Social History Drugs/Alcohol: Social Info Question Answer Notes Alcohol Screen Did you have a drink containing alcohol in the past year? Yes How often did you have a drink containing alcohol in the past year? 2 to 3 times a week (3 points) How many drinks did you have on a typical day when you were drinking in the past year? 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 beer Problems Problem Type SNOMED Code ICD Code Onset Dates Problem Status W/U Status Risk Notes Problem Gastro-esophageal reflux disease without esophagitis (891567364) Gastro-esophageal reflux disease without esophagitis (K21.9) Active confirmed Problem Screening for malignant neoplasm of colon (973053265) Encounter for screening for malignant neoplasm of colon (Z12.11) Active confirmed Problem Family History of Cancer of Colon (Situation) (218989587) Family history of colon cancer (Z80.0) Active confirmed Problem Benign neoplasm of stomach (08217885) Gastric polyps (K31.7) Active confirmed Problem Gastroesophageal reflux disease (429060797) GERD (gastroesophageal reflux disease) (K21.9) Active confirmed Problem Loera esophagus (757413084) 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) Active confirmed Problem Diverticulosis of colon (759141606) Diverticulosis of colon (K57.30) Active confirmed Problem Loera's esophagus (890891469) 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) Active confirmed Plan Of Treatment Future Test Test Name Order Date UPPER GI ENDOSCOPY 10/22/2021 COLONOSCOPY 10/22/2021 Insurance Providers Payer Name Payer Address Payer Phone Subscriber Number Group Number Insured Name Patient Relationship to Insured Coverage Start Date Coverage End Date [facility] [address] [place] [address] [phone] [id number] CARA DIEGO Self - patient is the insured [facility] [address] [place] [address] [id number] CARA DIEGO Self - patient is the insured Medical (General) History Medical History History ICD Code Hypertension Gout GERD/Esophagitis/Loera's/s mall hiatal hernia-last EGD in 08/[address] Estrada--he has been using omeprazole to many years with fairly good relief of reflux symptoms although he does have occasional nocturnal symptoms Negative screening colonoscopies in 2008 and in 08/2016 Denies [place],DM,CVA,Lung disease,renal dise ase Surgical History Surgery Date(Month/Year) Back surgeries 1989,1997
--- NOTE | 2025-04-27 07:49 | MHC.OFFVIS ---
Vital Signs 04/27/25 07:59 Height 6 ft Weight 194 lb 7.163 oz BMI 26.4 BP 152/90 H Blood Pressure Location Lt brachial Position Sitting Pulse 90 Pulse Source Pulse Oximeter Pulse Oximetry (%) 99 Oxygen Delivery Method Room Air Intake Visit Reasons: 3months Intake Note: Patient presents today for IA follow up and test results. Sleep Technologist Required: No Information Interpreted: non-clinical & clinical Accompanied by: Self / Same As Patient Allergies No Known Allergies Allergy (Verified 04/27/25 07:55) Medication List - Last Reconciled 04/27/25 by Pati Martinez MD allopurinol 300 mg PO DAILY colchicine Take 2 tab oral at first sign of gout flare following by 1 tab one hour later, then continue one tablet oral once daily folic acid 1 mg PO DAILY lisinopril 10 mg PO DAILY methotrexate sodium 15 mg (6 x 2.5 mg) PO QWEEK 90 days omeprazole 20 mg PO DAILY prednisone 5 mg PO DIRECTED prednisone 1 mg PO DAILY HPI Comments Details: Patient is a 70-year-old male with hypertension, GERD complicated by Loera's esophagus, non crystal proven non tophaceous gout here today for follow up Interval History: Patient last seen 01/26/25 with mi - New patient visit - Evaluation of joint pain - Based on the exam and history there was concern for inflammatory arthritis - Started on prednisone and methotrexate Today - On prednisone 9mg - Did not tolerate methotrexate and stopped after 5 weeks - Doing much better overall - Feels brain fog due to the prednisone Rheumatologic History: Initial History: Patient presented to walk in clinic 12/10/2024 wrists concern for Lyme disease. Two weeks prior to presenting he had a known tick bite of unknown duration but developed the classic erythema migrans rash with the bull's eye appearance with central clearing. He was given 10 days of doxycycline but his symptoms did not improve. He subsequently followed up with Infectious Disease who gave him further courses of doxycycline but this did not help. Continued to have hand swelling and pain. Was given a course of prednisone which helped to alleviate some of his symptoms. Labs for Lyme disease negative Found to have positive YUDI on testing by PCP Denies photosensitivity, alopecia, oral/nasal ulcers, sicca symptoms, lymphadenopathy, chest pain/shortness of breath, foamy urine, lower extremity edema, muscle weakness Also denies history of seizure, CVA, psychosis, history of kidney problems, history of cytopenias, history of VTE including PE or DVTs Prior to this he did have a history of gout for which she was taking allopurinol and colchicine 2 to 3 times a year for flares involving his feet and his knees otherwise patient notes he was a well male Current Rheumatology Medication(s): Prednisone 9mg daily [facility] Medical History (Updated 03/01/25 @ 10:44 by Cari Parnell MD) Inflammatory arthritis Gout Polyarthralgia Hypertension GERD (gastroesophageal reflux disease) Barretts esophagus Surgical History H/O colonoscopy (~11/29/21) History of esophagogastroduodenoscopy (EGD) H/O Spinal surgery History of tonsillectomy Family History Mother Colon cancer History of open heart surgery Social History Household Members: Spouse Housing: House Alcohol intake: former Comment: Occassionally Patient Tobacco Use Status: Never used Tobacco e-Cigarette/Vaping Use: Never Used service: No Current occupational status: employed Current occupation: [employer] work - Right Handed Review of Systems Narrative Review of Systems Constitutional: Denies fever, chills, weight loss ENT: Denies vision changes, eye pain or eye redness, dental caries, dry mouth GI: Denies nausea, vomiting, diarrhea, abdominal pain, change in BM Pulm: Denies SOB, SCHROEDER, hemoptysis, wheezing Cards: Denies chest pain, palpitations Skin: Denies Raynaud's, rash, nail changes, photosensitivity, DIRECTOR SELECTION AND ADMINISTRATION: Denies headaches, weakness, paresthesias, recurrent falls MSK: as per HPI All other systems reviewed and are unremarkable except noted above Physical Exam Exam Exam: Vital signs reviewed Physical Examination CONSTITUITIONAL Patient alert and cooperative. Well appearing and in no apparent painful distress MSK Hands Right Hand: Able to make a fist. No swelling or tenderness to palpation of the MCPs, PIPs or DIPs. Left Hand: Able to make a fist. No swelling or tenderness to palpation of the MCPs, PIPs or DIPs. Prominent Herbedens and Bouchards nodes noted bilaterally Wrists Right Wrist: No swelling or TTP Left Wrist: No swelling or TTP Elbows Right Elbow: Full ROM. No swelling or TTP. No TTP of the medial epicondyle. No TTP of the lateral epicondyle Left Elbow: Full ROM. No swelling or TTP. No TTP of the medial epicondyle. No TTP of the lateral epicondyle Shoulders Right shoulder: Full ROM. No swelling noted. No TTP of the AC joint. No TTP of the subacromial bursa. No TTP of the posterior shoulder Left shoulder: Full ROM. No swelling noted. No TTP of the AC joint. No TTP of the subacromial bursa. No TTP of the posterior shoulder Knees Right knee: No swelling noted. No TTP of the knee joint line. No TTP of pes anserine bursa Left knee: No swelling noted. No TTP of the knee joint line. No TTP of pes anserine bursa. Ankles Right ankle: Good ankle dorsiflexion and plantar flexion. No swelling. No TTP of the ankle joint Left ankle: Good ankle dorsiflexion and plantar flexion. No swelling. No TTP of the ankle joint Feet Right foot: Negative squeeze test. Onycholysis of the great toe Left foot: Negative squeeze test Tender points? No tenderness to palpation of the bilateral trapezius, supraspinatus, anterior costochondral junctions, bilateral suboccipital muscle insertions Vital Signs: Last Vital Signs Pulse 90 04/27/25 07:59 BP 152/90 H 04/27/25 07:59 Pulse Ox 99 04/27/25 07:59 Oxygen Delivery Method Room Air 04/27/25 07:59 BMI result Body Mass Index 26.4 Results Reviewed Results Reviewed: Laboratory Tests 01/26/25 02/28/25 08:58 15:02 WBC 13.7 H RBC 4.17 L Hgb 12.3 L Hct 38.3 L Plt Count 373 ESR 30 H Sodium 137 Potassium 4.3 Chloride 101 Carbon Dioxide 28 BUN 16 Creatinine 0.73 Uric Acid 5.8 AST 26 ALT 37 C-Reactive Protein 5.44 H Laboratory Tests 12/28/24 01/26/25 09:55 08:58 Rheumatoid Factor < 13.0 Cycl Citrul Peptide IgG <16 YUDI Screen POSITIVE A YUDI Titer 1:320 H SS-A/Ro Antibody <1.0 NEG SS-B/La Antibody <1.0 NEG Sm (Rodriguez) Antibody <1.0 NEG SM/PLASTIC JIG [employer]TURE BUILDER IgG Antibody <1.0 NEG Scl-70 Scleroderma Ab <1.0 NEG Double Strand DNA Ab 1 Complement C3 156 Complement C4 24 RENE IgG kappa monoclonal band present. Assessment & Plan Assessment & Plan (1) Inflammatory arthritis: Code(s): M19.90 - Unspecified osteoarthritis, unspecified site Category: Medical Plan: #Inflammatory arthritis Patient is a 70-year-old male with history of non tophaceous non crystal proven gout here today for follow up Course seems consistent with a reactive arthritis Much improved Will try to speed up the taper a bit since patient is having steroid side effects Plan - Prednisone 8mg x 2 weeks then 7mg x 2 weeks then 6mg x 2 weeks then 5mg x 2 weeks and stay on 5mg until follow up - Stop Mtx and folic acid - Labs today: CBC, CMP, ESR, CRP - RTC 2 months - Labs before visit: CBC, CMP, ESR, CRP (2) Gout: Code(s): M10.9 - Gout, unspecified Category: Medical Qualifiers: Chronicity: chronic Gout etiology: idiopathic Gout site: multiple sites Presence of tophus: without tophus Qualified Code(s): M1A.09X0 - Idiopathic chronic gout, multiple sites, without tophus (tophi) Plan: #Non crystal proven non tophaceous gout Patient with a history of gout currently on allopurinol. States that he gets 2-3 flares of his gout per year which leads me to believe that his gout is not well-controlled Plan - Continue Allopurinol 300mg for now, if UA > 5 will increase dose (3) Encounter for monitoring allopurinol therapy: Code(s): Z51.81 - Encounter for therapeutic drug level monitoring; Z79.899 - Other assisted (current) drug therapy Plan: #Long-term Current Use of Allopurinol Risks and benefits of allopurinol discussed with patient Benefits include decreased gout flares, remission of gout and reduction of tophi Risks include allopurinol hypersensitivity syndrome which is a severe cutaneous adverse reaction associated with allopurinol use particularly in patients who are HLA [id number] positive, increased transaminases, GI upset including diarrhea, nausea and vomiting, and other dermatologic manifestations. Plan I spent 30 minutes reviewing the record and labs, taking a history, examining the patient, discussing the treatment plan, ordering diagnostic work up and documenting in the medical record Orders: Orders C Reactive Protein 2 Months Z79.899 - Other assisted (current) drug therapy Erythrocyte Sedimentation Rate 2 Months Z79.89 - Other termite inspector (current) drug therapy Complete Blood Count Auto Diff 2 Months Z79.89 - Other termite inspector (current) drug therapy Comprehensive Met. Panel 2 Months Z79.89 - Other assisted (current) drug therapy Medications: Changed From prednisone Take 4 tablets daily for 4 weeks (along with 5mg for a total of 9mg) 1 mg PO DAILY 115 tabs 0RF M19.90 - Unspecified osteoarthritis, unspecified site To prednisone Take 3 tablets daily for 2 weeks (along with 5mg for a total of 8mg) then Take 2 tablets daily for 2 weeks (along with 5mg for a total of 7mg) then Take 1 tablets daily for 2 weeks (along with 5mg for a total of 6mg) then stop taking 1 mg tablets 1 mg PO DAILY 84 tabs 0RF M19.90 - Unspecified osteoarthritis, unspecified site Refilled prednisone 5 mg PO DIRECTED 60 tabs 0RF M19.90 - Unspecified osteoarthritis, unspecified site Discontinued methotrexate sodium Discontinued Reason: Doctor's Order 15 mg (6 x 2.5 mg) PO QWEEK 90 days 78 tabs 1RF M19.90 - Unspecified osteoarthritis, unspecified site folic acid Discontinued Reason: Doctor's Order 1 mg PO DAILY 90 tabs 1RF M19.90 - Unspecified osteoarthritis, unspecified site Coding Level of Care Code Est Pt Level 4 (62755) Add On Problem Visit Only Diagnoses Inflammatory arthritis M19.90 Idiopathic chronic gout of multiple sites without tophus M1A.09X0 Chronicity: chronic Gout etiology: idiopathic Gout site: multiple sites Presence of tophus: without tophus Encounter for monitoring allopurinol therapy Z51.81; Z79.899
[2025-04-27 07:59] VITALS: BP 152/90; PULSE 90; O2SAT 99; BMI 26.4
== END 2025-04-27 08:23 | disposition home or self-care (01) ==
LOC: HO.RHES 07:26
PROVIDERS: PCP Physician Assistant; Visit Provider Student in an Organized Health Care Education/Training Program
DX: M19.90 Unspecified osteoarthritis, unspecified site (principal); M1A.09X0 Idiopathic chronic gout, multiple sites, without tophus (tophi); Z51.81 Encounter for therapeutic drug level monitoring; Z79.899 Other long term (current) drug therapy
CPT/HCPCS: 99214